=== PATIENT | female | born 1935 | race Caucasian/White ===

== ENCOUNTER 2016-10-18 16:58 | Inpatient (IN) | payer MEDICARE, OTHER ==
--- NOTE | 2016-10-18 18:21 | EDM.PDOC ---
ED HPI GENERAL MEDICAL PROBLEM - General Chief Complaint: Respiratory Problem Stated Complaint: SOB,CHEST PRESSURE Time Seen by Provider: 10/18/16 17:35 Source of Information: Reports: Patient, Family History Limitations: Reports: No Limitations - History of Present Illness INITIAL COMMENTS - FREE TEXT/NARRATIVE: pt has had increased sob. She had a very difficult nite last nitre. She has noted some increased swelling in her ankles. Onset: Gradual Duration: Day(s):, Getting Worse Location: Reports: Chest Associated Symptoms: Reports: Shortness of Breath, Weakness - Related Data Allergies Allergy/AdvReac Type Severity Reaction Status Date / Time codeine Allergy Nausea Verified 10/18/16 18:05 morphine AdvReac Nausea Verified 10/18/16 18:05 Home Meds: Home Meds Aspirin 81 mg PO DAILY 10/18/16 [History] Calcium Acetate 3 tab PO TID 10/18/16 [History] Cholecalciferol (Vitamin D3) [Vitamin D3] 1,000 units PO DAILY 10/18/16 [History ] Citric Acid/Potassium Citrate [Polycitra-K] 30 ml PO DAILY 10/18/16 [History] Ferrous Sulfate 325 mg PO DAILY 10/18/16 [History] Levothyroxine Sodium [Synthroid] 112 mcg PO ACBREAKFAST 10/18/16 [History] Multivitamin [Multivitamins] 1 tab PO DAILY 10/18/16 [History] Nabumetone [Relafen] 1 tab PO BID 10/18/16 [History] Polyethylene Glycol/Polyvinyl [Hypotears Eye Drops] 1 drop EYEBOTH DAILY [History] Pramipexole Di-HCl [Mirapex] 2 tab PO BEDTIME 10/18/16 [History] Simvastatin [Zocor] 20 mg PO BEDTIME 10/18/16 [History] Timolol [Betimol 0.5% Ophth Soln] 1 drop EYEBOTH DAILY 10/18/16 [History] Tolterodine [Detrol] 2 mg PO DAILY 10/18/16 [History] glyBURIDE/Metformin HCl [Glucovance 2.5-500 MG] 1 tab PO BID 10/18/16 [History] traMADol [Ultram] 100 mg PO TID 10/18/16 [History] Furosemide 40 mg PO DAILY #30 tablet 10/22/16 [Rx] Lisinopril [Prinivil] 10 mg PO BEDTIME #30 tablet 10/22/16 [Rx] Pantoprazole [ProTONIX] 40 mg PO DAILY #30 tab.cr 10/22/16 [Rx] Past Medical History HEENT History: Reports: Cataract, Impaired Vision Cardiovascular History: Reports: Hypertension Genitourinary History: Reports: Renal Disease Musculoskeletal History: Reports: Arthritis Endocrine/Metabolic History: Reports: Hypothyroidism, IDDM - Past Surgical History HEENT Surgical History: Reports: Cataract Surgery GI Surgical History: Reports: Appendectomy, Bariatric Procedure, Cholecystectomy Female Surgical History: Reports: Kidney stone extraction Musculoskeletal Surgical History: Reports: Knee Replacement Social & Family History - Tobacco Use Smoking Status *Q: Former Smoker Used Tobacco, but Quit: Yes Month Tobacco Last Used: 200 - Caffeine Use Caffeine Use: Reports: Coffee - Recreational Drug Use Recreational Drug Use: No ED ROS GENERAL - Review of Systems Review Of Systems: See Below Constitutional: Reports: Weakness HEENT: Reports: No Symptoms Respiratory: Reports: Shortness of Breath, Cough Cardiovascular: Reports: No Symptoms Endocrine: Reports: No Symptoms GI/Abdominal: Reports: No Symptoms : Reports: No Symptoms Musculoskeletal: Reports: No Symptoms Skin: Reports: No Symptoms Neurological: Reports: No Symptoms Psychiatric: Reports: No Symptoms ED EXAM, GENERAL - Physical Exam Exam: See Below Free Text/Narrative:: pt has had a increasing problems with sob. She was unable to rest last nite because of the sob. Exam Limited By: No Limitations General Appearance: Alert, Anxious, Moderate Distress Ears: Normal TMs Nose: Normal Inspection Throat/Mouth: Normal Inspection Head: Atraumatic Neck: Normal Inspection Respiratory/Chest: Decreased Breath Sounds, Rales Cardiovascular: Regular Rate, Rhythm GI/Abdominal: Soft, Non-Tender Rectal (Female) Exam: Other ( no masses stool was reyes in color) Back Exam: Normal Inspection Extremities: Pedal Edema, Other (pt has leg swelling. ) Neurological: Alert, Oriented, Normal Cognition Psychiatric: Normal Affect Course - Vital Signs Last Recorded V/S: Last Vital Signs Temp 36.7 C 10/22/16 11:02 Pulse 67 10/22/16 11:02 Resp 20 10/22/16 11:02 BP 105/52 L 10/22/16 11:02 Pulse Ox 96 10/22/16 11:02 - Orders/Labs/Meds Labs: Laboratory Tests 10/18/16 10/18/16 10/18/16 Range/Units 17:36 17:36 18:06 WBC 10.0 (4.5-11.0) K/uL RBC 3.66 (3.30-5.50) M/uL Hgb 7.6 L (12.0-15.0) g/dL Hct 28.1 L (36.0-48.0) % MCV 77 L (80-98) fL MCH 21 L (27-31) pg MCHC 27 L (32-36) % Plt Count 297 (150-400) K/uL Neut % (Auto) 81 H (36-66) % Lymph % (Auto) 10 L (24-44) % [place] % (Auto) 6 (2-6) % Eos % (Auto) 2 (2-4) % Baso % (Auto) 0 (0-1) % Sodium 145 (140-148) mmol/L Potassium 4.3 (3.6-5.2) mmol/L Chloride 107 (100-108) mmol/L Carbon Dioxide 33 H (21-32) mmol/L Anion Gap 9.3 (5.0-14.0) mmol/L BUN 26 H (7-18) mg/dL Creatinine 1.1 H (0.6-1.0) mg/dL Est Cr Clr Drug Dosing 32.80 mL/min Estimated GFR (MDRD) 48 L (>60) Glucose 177 H (74-106) mg/dL Calcium 8.5 (8.5-10.1) mg/dL Iron 20 L (50-170) ug/dL TIBC 442 (250-450) ug/dl % Saturation 5 L (20-55) % Total Bilirubin 0.3 (0.2-1.0) mg/dL AST 16 (15-37) U/L ALT 24 (12-78) U/L Alkaline Phosphatase 105 (46-116) U/L Creatine Kinase 57 (26-192) U/L C-Reactive Protein (0.0-0.3) mg/dL NT-Pro-B Natriuret Pep 670 H (5-450) pg/mL Total Protein 7.0 (6.4-8.2) g/dL Albumin 2.9 L (3.4-5.0) g/dL Globulin 4.1 H (2.3-3.5) g/dL Albumin/Globulin Ratio 0.7 L (1.2-2.2) Urine Color Urine Appearance Urine pH (4.5-8.0) Ur Specific [place] (1.008-1.030) Urine Protein (NEGATIVE) mg/dL Urine Glucose (UA) (NEGATIVE) mg/dL Urine Ketones (NEGATIVE) mg/dL Urine Occult Blood (NEGATIVE) Urine Nitrite (NEGATIVE) Urine Bilirubin (NEGATIVE) Urine Urobilinogen (NORMAL) mg/dL Ur Leukocyte Esterase (NEGATIVE) Urine RBC (0-5) Urine WBC (0-5) Ur Epithelial Cells Amorphous Sediment Urine Bacteria Urine Mucus Blood Type Gel Antibody Screen Crossmatch 10/18/16 10/18/16 10/18/16 Range/Units 18:08 18:27 20:07 WBC (4.5-11.0) K/uL RBC (3.30-5.50) M/uL Hgb (12.0-15.0) g/dL Hct (36.0-48.0) % MCV (80-98) fL MCH (27-31) pg MCHC (32-36) % Plt Count (150-400) K/uL Neut % (Auto) (36-66) % Lymph % (Auto) (24-44) % [place] % (Auto) (2-6) % Eos % (Auto) (2-4) % Baso % (Auto) (0-1) % Sodium (140-148) mmol/L Potassium (3.6-5.2) mmol/L Chloride (100-108) mmol/L Carbon Dioxide (21-32) mmol/L Anion Gap (5.0-14.0) mmol/L BUN (7-18) mg/dL Creatinine (0.6-1.0) mg/dL Est Cr Clr Drug Dosing mL/min Estimated GFR (MDRD) (>60) Glucose (74-106) mg/dL Calcium (8.5-10.1) mg/dL Iron (50-170) ug/dL TIBC (250-450) ug/dl % Saturation (20-55) % Total Bilirubin (0.2-1.0) mg/dL AST (15-37) U/L ALT (12-78) U/L Alkaline Phosphatase (46-116) U/L Creatine Kinase (26-192) U/L C-Reactive Protein 0.12 (0.0-0.3) mg/dL NT-Pro-B Natriuret Pep (5-450) pg/mL Total Protein (6.4-8.2) g/dL Albumin (3.4-5.0) g/dL Globulin (2.3-3.5) g/dL Albumin/Globulin Ratio (1.2-2.2) Urine Color Yellow Urine Appearance Slightly cloudy Urine pH 7.0 (4.5-8.0) Ur Specific [place] 1.010 (1.008-1.030) Urine Protein Negative (NEGATIVE) mg/dL Urine Glucose (UA) Normal (NEGATIVE) mg/dL Urine Ketones Negative (NEGATIVE) mg/dL Urine Occult Blood Negative (NEGATIVE) Urine Nitrite Negative (NEGATIVE) Urine Bilirubin Negative (NEGATIVE) Urine Urobilinogen Normal (NORMAL) mg/dL Ur Leukocyte Esterase Moderate (NEGATIVE) Urine RBC 5-10 H (0-5) Urine WBC 10-20 H (0-5) Ur Epithelial Cells Moderate Amorphous Sediment Not seen Urine Bacteria Moderate Urine Mucus Not seen Blood Type B POSITIVE Gel Antibody Screen Negative Crossmatch See Detail Meds: Medications Discontinued Medications Generic Name Dose Route Start Last Admin Trade Name Freq PRN Reason Stop Dose Admin Acetaminophen 650 mg 10/18/16 21:03 Tylenol PO Q4H PRN Pain (Mild 1-3)/fever Albuterol 2.5 mg 10/18/16 21:03 Proventil Neb Soln NEB Q4H PRN Shortness Of Breath/wheezing Artificial Tears 0 ml 10/19/16 09:00 10/22/16 08:28 Natural Balance Tears EYEBOTH 1 drop DAILY [facility] Administration Aspirin 81 mg 10/19/16 09:00 10/22/16 10:37 Aspirin PO 81 mg DAILY [facility] Administration Bisacodyl 10 mg 10/20/16 11:00 10/20/16 11:29 Dulcolax PO 10/20/16 11:01 10 mg ONETIME ONE Administration Bisacodyl 10 mg 10/20/16 20:00 10/20/16 19:47 Dulcolax PO 10/20/16 20:01 10 mg ONETIME ONE Administration Carvedilol 6.25 mg 10/20/16 21:00 10/21/16 14:24 Coreg PO Not Given BID [facility] Dextrose 15 gm 10/18/16 21:03 Glutose 15 PO ONETIME PRN Hypoglycemia Dextrose/Water 50 ml 10/18/16 21:03 Dextrose 50% In Water IV ONETIME PRN Hypoglycemia Docusate Sodium 100 mg 10/18/16 21:03 Colace PO BID PRN Constipation Enoxaparin Sodium 40 mg 10/18/16 21:03 10/18/16 22:38 Lovenox SUBCUT 40 mg DAILY [facility] Administration Enoxaparin Sodium 30 mg 10/19/16 20:00 10/19/16 20:14 Lovenox SUBCUT 30 mg Q24H [facility] Administration Fentanyl Confirm 10/21/16 11:57 Sublimaze Administered 10/21/16 11:58 Dose 100 mcg .ROUTE .STK-MED ONE Furosemide 60 mg 10/18/16 18:30 10/18/16 19:17 Lasix IVPUSH 10/18/16 18:31 60 mg ONETIME ONE Administration Furosemide 40 mg 10/19/16 08:00 10/19/16 08:41 Lasix IVPUSH 10/19/16 08:01 40 mg ONETIME ONE Administration Furosemide 40 mg 10/19/16 19:30 10/20/16 08:10 Lasix IVPUSH 40 mg Q12H [facility] Administration Glyburide 2.5 mg 10/19/16 09:00 10/22/16 08:28 Micronase PO 2.5 mg BID [facility] Administration Sodium Chloride 1,000 mls @ 100 mls/hr 10/18/16 18:30 10/18/16 19:17 Normal Saline IV 100 mls/hr ASDIRECTED [facility] Administration Ferric Sodium Gluconate 120 mls @ 120 mls/hr 10/18/16 22:00 10/19/16 00:31 Complex 250 mg/ Sodium IV 10/19/16 22:59 120 mls/hr Chloride Q24H [facility] Administration Ferric Sodium Gluconate 120 mls @ 60 mls/hr 10/19/16 22:00 10/19/16 21:46 Complex 250 mg/ Sodium IV 10/19/16 23:59 60 mls/hr Chloride Q24H [facility] Administration Potassium Chloride 20 meq/ 112 mls @ 56 mls/hr 10/21/16 09:00 10/21/16 14:20 Lidocaine HCl 2 ml/ Sodium IV 10/21/16 14:59 56 mls/hr Chloride Q2H [facility] Administration Sodium Chloride 1,000 mls @ 50 mls/hr 10/21/16 09:30 10/21/16 09:43 Normal Saline IV 50 mls/hr ASDIRECTED [facility] Administration Indapamide 2.5 mg 10/19/16 09:00 10/21/16 15:09 Indapamide PO Not Given DAILY [facility] Insulin Aspart 0 unit 10/19/16 07:00 10/22/16 11:54 Novolog SUBCUT Not Given QIDACANDBED [facility] Protocol Insulin Aspart 0 unit 10/18/16 21:10 Novolog SUBCUT 10/19/16 05:00 ONETIME PRN Blood Glucose Protocol Levothyroxine Sodium 112 mcg 10/19/16 07:30 10/22/16 10:37 Levothyroxine PO 112 mcg ACBREAKFAST [facility] Administration Lisinopril 40 mg 10/19/16 09:00 10/21/16 14:25 Prinivil PO Not Given DAILY [facility] Lisinopril 10 mg 10/22/16 09:00 10/22/16 08:26 Prinivil PO 10 mg DAILY [facility] Administration Magnesium Hydroxide 30 ml 10/18/16 21:03 Milk Of Magnesia PO Q12H PRN Constipation Metformin HCl 500 mg 10/19/16 09:00 10/18/16 22:41 Glucophage PO 500 mg BID [facility] Administration Metformin HCl Confirm 10/18/16 22:34 10/18/16 22:51 Glucophage Administered 10/18/16 22:35 Not Given Dose 500 mg .ROUTE .STK-MED ONE Metformin HCl 500 mg 10/19/16 08:00 10/22/16 08:30 Glucophage PO 500 mg BIDMEALS [facility] Administration Metoclopramide HCl 10 mg 10/21/16 06:48 10/21/16 07:11 Reglan IV 10/21/16 06:49 10 mg ONETIME ONE Administration Metoprolol Tartrate 25 mg 10/19/16 16:00 10/20/16 11:32 Lopressor PO Not Given Q6H [facility] Midazolam HCl Confirm 10/21/16 11:57 Versed 1 Mg/Ml Administered 10/21/16 11:58 Dose 2 mg .ROUTE .STK-MED ONE Non-Formulary Medication 1 tab 10/18/16 21:03 10/18/16 22:43 Verapamil Hcl [Verapamil Er] PO Not Given BID [facility] Ondansetron HCl 4 mg 10/18/16 21:03 10/21/16 06:38 Zofran IV 4 mg Q4H PRN Administration Nausea/Vomiting Oxycodone HCl 5 mg 10/18/16 21:03 Oxycodone PO Q4H PRN Pain (moderate 4-6) Pantoprazole Sodium 40 mg 10/18/16 21:30 10/19/16 08:41 Protonix Iv IVPUSH 40 mg Q12H [facility] Administration Pantoprazole Sodium 40 mg 10/19/16 16:30 10/22/16 08:24 Protonix PO 40 mg BIDAC [facility] Administration Polyethylene Glycol 17 gm 10/18/16 21:03 Miralax PO DAILY PRN Constipation Polyethylene Glycol 238 gm 10/20/16 17:00 10/20/16 17:35 Miralax PO 10/20/16 17:01 238 gm ONETIME ONE Administration Pramipexole Dihydrochloride 0.5 mg 10/18/16 21:30 Mirapex PO BEDTIME [facility] Pramipexole Dihydrochloride 0.25 mg 10/18/16 21:30 10/21/16 20:51 Mirapex PO 0.25 mg BEDTIME [facility] Administration Propofol Confirm 10/21/16 11:56 Diprivan 20 Ml Administered 10/21/16 11:57 Dose 200 mg .ROUTE .STK-MED ONE Simvastatin 20 mg 10/18/16 21:03 10/21/16 20:52 Zocor PO 20 mg BEDTIME [facility] Administration Sodium Chloride 10 ml 10/18/16 21:03 Saline Flush FLUSH ASDIRECTED PRN Keep Vein Open Timolol Maleate 0 ml 10/19/16 09:00 10/22/16 08:29 Betimol 0.5% Ophth Soln EYEBOTH 1 drop DAILY [facility] Administration Tolterodine Tartrate 2 mg 10/19/16 09:00 10/22/16 10:37 Detrol PO 2 mg DAILY [facility] Administration Tramadol HCl 100 mg 10/18/16 21:03 10/18/16 22:42 Ultram PO Not Given TID [facility] Tramadol HCl 100 mg 10/18/16 22:22 10/20/16 23:18 Ultram PO 100 mg TID PRN Administration Pain - Re-Assessments/Exams Free Text/Narrative Re-Assessment/Exam: 10/18/16 18:34 chest xray reveals effusions. There is a possible mass in the rt chest. 10/18/16 18:49 pt has a creatnine of 1.1. Her gfr is low. Departure - Departure Time of Disposition: 18:52 Disposition: Admitted As Inpatient 68 Condition: Fair Clinical Impression: Fluid overload, Anemia, Iron deficiency - Discharge Information
[2016-10-18] MEDS ORDERED: Furosemide 40 MG/4 ML VIAL IVPUSH ONE (18:30)
[2016-10-18] MEDS ORDERED: Sodium Chloride 0.9% 1,000 ML IV SCH (18:30)
[2016-10-18] MEDS ORDERED: traMADol 50 MG Tab PO SCH (21:03)
[2016-10-18] MEDS ORDERED: Docusate Sodium 100 MG Cap PO PRN (21:03)
[2016-10-18] MEDS ORDERED: Polyethylene Glycol 3350 Powder 17 GM Packet PO PRN (21:03)
[2016-10-18] MEDS ORDERED: 50% Dextrose in Water 50 ML Syringe IV PRN (21:03)
[2016-10-18] MEDS ORDERED: Albuterol 0.083% 2.5 MG/3 ML Neb Soln NEB PRN (21:03)
[2016-10-18] MEDS ORDERED: Glucose Gel 15 GM in 37.5 GM Tube PO PRN (21:03)
[2016-10-18] MEDS ORDERED: Magnesium Hydroxide 400 MG/5 ML Susp 30 ML Cup PO PRN (21:03)
[2016-10-18] MEDS ORDERED: VERAPAMIL HCL PO SCH (21:03)
[2016-10-18] MEDS ORDERED: oxyCODONE 5 MG Tab PO PRN (21:03)
[2016-10-18] MEDS ORDERED: Enoxaparin 40 MG/0.4 ML Syringe SUBCUT SCH (21:03)
[2016-10-18] MEDS ORDERED: Sodium Chloride 0.9% 10 ML Syringe FLUSH PRN (21:03)
[2016-10-18] MEDS ORDERED: Acetaminophen 325 MG Tab PO PRN (21:03)
[2016-10-18] MEDS ORDERED: Insulin Aspart 100 Units/ML 3 ML Pen SUBCUT PRN (21:10)
[2016-10-18] MEDS ORDERED: Pramipexole 0.5 MG Tab PO SCH (21:30)
[2016-10-18] MEDS ORDERED: Sodium Ferric Gluconate Cmplex 250 MG in Sodium Chloride 0.9% 100 ML IV SCH (22:00)
--- NOTE | 2016-10-18 22:04 | PCM.HP ---
H&P History of Present Illness - General Date of Service: 10/18/16 Admit Problem/Dx: Admission Diagnosis/Problem Admission Diagnosis/Problem Hypoxia Source of Information: Patient, Provider, RN Notes Reviewed History Limitations: Reports: No Limitations - History of Present Illness Initial Comments - Free Text/Narative: This patient is a 81-year-old woman who is admitted through the emergency department with shortness of breath, hypoxia, and weakness secondary to pulmonary edema with probable congestive heart failure. She also is found to have significant anemia on evaluation in the emergency department which is likely exacerbating current symptoms of weakness as well as shortness of breath. She denies any previous history of significant cardiac disease specifically has not had known coronary artery disease congestive heart failure or significant valvular disease. She denies any history of respiratory disease, but does have a previous history of anemia with GI bleed approximately 8 years ago. Symptoms have been present over the past several months but became significantly worse this past week. She's had increase in peripheral edema and also experience symptoms of orthopnea and PND. - Related Data Allergies/Adverse Reactions: Allergies Allergy/AdvReac Type Severity Reaction Status Date / Time codeine Allergy Nausea Verified 10/18/16 18:05 morphine AdvReac Nausea Verified 10/18/16 18:05 Home Medications: Home Meds Aspirin 81 mg PO DAILY 10/18/16 [History] Calcium Acetate 667 mg PO TID 10/18/16 [History] Cholecalciferol (Vitamin D3) [Vitamin D3] 1,000 units PO DAILY 10/18/16 [History ] Citric Acid/Potassium Citrate [Polycitra-K] 30 ml PO DAILY 10/18/16 [History] Ferrous Sulfate 325 mg PO DAILY 10/18/16 [History] Furosemide 20 mg PO DAILY 10/18/16 [History] Indapamide 2.5 mg PO DAILY 10/18/16 [History] Levothyroxine Sodium [Synthroid] 112 mcg PO ACBREAKFAST 10/18/16 [History] Lisinopril 40 mg PO DAILY 10/18/16 [History] Multivitamin [Multivitamins] 1 tab PO DAILY 10/18/16 [History] Nabumetone [Relafen] 1 tab PO BID 10/18/16 [History] Polyethylene Glycol/Polyvinyl [Hypotears Eye Drops] 1 drop EYEBOTH DAILY [History] Pramipexole Di-HCl [Mirapex] 2 tab PO BEDTIME 10/18/16 [History] Simvastatin [Zocor] 20 mg PO BEDTIME 10/18/16 [History] Timolol [Betimol 0.5% Ophth Soln] 1 drop EYEBOTH DAILY 10/18/16 [History] Tolterodine [Detrol] 2 mg PO DAILY 10/18/16 [History] Verapamil HCl [Verapamil ER] 1 tab PO BID 10/18/16 [History] glyBURIDE/Metformin HCl [Glucovance 2.5-500 MG] 1 tab PO BID 10/18/16 [History] traMADol [Ultram] 100 mg PO TID 10/18/16 [History] Past Medical History HEENT History: Reports: Cataract, Impaired Vision Cardiovascular History: Reports: Hypertension Genitourinary History: Reports: Renal Disease Musculoskeletal History: Reports: Arthritis Endocrine/Metabolic History: Reports: Hypothyroidism, IDDM - Past Surgical History HEENT Surgical History: Reports: Cataract Surgery GI Surgical History: Reports: Appendectomy, Bariatric Procedure, Cholecystectomy Female Surgical History: Reports: Kidney stone extraction Musculoskeletal Surgical History: Reports: Knee Replacement Social & Family History - Tobacco Use Smoking Status *Q: Former Smoker Used Tobacco, but Quit: Yes Month Tobacco Last Used: 200 - Caffeine Use Caffeine Use: Reports: Coffee - Recreational Drug Use Recreational Drug Use: No H&P Review of Systems - Review of Systems: Review Of Systems: See Below General: Reports: Weakness, Diaphoresis. Denies: Fever, Chills HEENT: Reports: No Symptoms Pulmonary: Reports: Shortness of Breath. Denies: Wheezing, Pleuritic Chest Pain , Cough, Sputum, Hemoptysis Cardiovascular: Reports: Dyspnea on Exertion, Orthopnea, PND, Edema, Lightheadedness. Denies: Chest Pain, Palpitations, Syncope Gastrointestinal: Reports: No Symptoms Genitourinary: Reports: No Symptoms Musculoskeletal: Reports: Back Pain, Joint Pain Skin: Reports: No Symptoms Psychiatric: Reports: No Symptoms Neurological: Reports: No Symptoms Hematologic/Lymphatic: Reports: No Symptoms Immunologic: Reports: No Symptoms Exam - Exam Exam: See Below - Vital Signs Vital Signs: Last Vital Signs Temp 98.3 F 10/18/16 21:03 Pulse 63 10/18/16 21:05 Resp 19 10/18/16 21:05 BP 121/44 L 10/18/16 21:05 Pulse Ox 97 10/18/16 21:05 Weight: 243 lb 6.245 oz - Exam Quality Assessment: Supplemental Oxygen, DVT Prophylaxis General: Alert, Oriented, Cooperative, Mild Distress HEENT: Conjunctiva Clear, Hearing Intact, Mucosa Moist & [place], Normal Nasal Septum, Posterior Pharynx Clear, Pupils Equal Neck: Supple, Trachea Midline, +2 Carotid Pulse wo Bruit Lungs: Normal Respiratory Effort, Rales. No: Decreased Breath Sounds, Crackles , Rhonchi, Wheezing Cardiovascular: Regular Rate, Regular Rhythm, Normal S1, Normal S2. No: Tachycardia, Systolic Murmur, Diastolic Murmur, Gallop/S3, Gallop/S4 GI/Abdominal Exam: Normal Bowel Sounds, Soft, Non-Tender, No Distention Back Exam: Normal Inspection, Full Range of Motion, Vertebral Tenderness Extremities: Normal Range of Motion, Non-Tender, Pedal Edema Skin: Warm, Dry, Intact Neurological: Cranial Nerves Intact, Strength Equal Bilateral, Normal Speech, Normal Tone, Sensation Intact. No: Focal Deficit Neuro Extensive - Mental Status: Alert, Oriented x3, Normal Mood/Affect, Normal Cognition, Memory Intact - Patient Data Result Diagrams: 10/18/16 17:36 10/18/16 17:36 *Q Meaningful Use (ADM) - VTE *Q VTE Criteria *Q: - VTE Risk Assess *Q Each Risk Factor Represents 1 Point: Swollen Legs, Current Total Score 1 Point Risk Factors: 1 Each Risk Factor Represents 2 Points: Morbid Obesity (BMI Greater than 40) Total Score 2 Point Risk Factors: 2 Each Risk Factor Represents 3 Points: Age 75 Years or Greater Total Score 3 Point Risk Factors: 3 Each Risk Factor Represents 5 Points: None Total Score 5 Point Risk Factors: 0 Venous Thromboembolism Risk Factor Score *Q: 6 - Stroke *Q Stroke Criteria *Q: - AMI *Q AMI Criteria *Q: Problem List Initiated/Reviewed/Updated: Yes Orders Last 24hrs: Active Orders 24 hr Category Date Time Status Patient Status [ADT] Routine ADT 10/18/16 21:03 Active Ambulate [RC] QID Care 10/18/16 21:03 Active Blood Glucose Check, Bedside [RC] QIDACANDBED Care 10/18/16 21:03 Active Cardiac Education [RC] Click to Edit Care 10/18/16 21:03 Active Cardiac Monitoring [RC] .As Directed Care 10/18/16 21:03 Active Communication Order [RC] ASDIRECTED Care 10/18/16 21:03 Active Diabetes Education [RC] Click to Edit Care 10/18/16 21:03 Active Intake and Output [RC] QSHIFT Care 10/18/16 21:03 Active Notify Provider Vital Signs [RC] ASDIRECTED Care 10/18/16 21:03 Active Notify Provider [RC] PRN Care 10/18/16 21:03 Active Oxygen Therapy [RC] PRN Care 10/18/16 21:03 Active RT Aerosol Therapy [RC] ASDIRECTED Care 10/18/16 21:03 Active Up With Assistance [RC] ASDIRECTED Care 10/18/16 21:03 Active Up to Chair [RC] QID Care 10/18/16 21:03 Active VTE/DVT Education [RC] Per Unit Routine Care 10/18/16 21:03 Active Vital Signs [RC] Q4H Care 10/18/16 21:03 Active 2 Gram Sodium Diet [DIET] Diet 10/18/16 Breakfast Active Consistent Carbohydrate Diet [DIET] Diet 10/18/16 Breakfast Active Echo Comp wo Cont [US] Urgent Exams 10/20/16 08:00 Ordered BASIC METABOLIC PANEL,BMP [CHEM] AM Lab 10/19/16 05:11 Ordered CBC WITH AUTO DIFF [HEME] AM Lab 10/19/16 05:11 Ordered GLUCOSE POC LAB TO COLLECT [POC] QIDACANDBED Lab 10/19/16 07:30 Ordered GLUCOSE POC LAB TO COLLECT [POC] QIDACANDBED Lab 10/19/16 11:30 Ordered GLUCOSE POC LAB TO COLLECT [POC] QIDACANDBED Lab 10/19/16 16:30 Ordered GLUCOSE POC LAB TO COLLECT [POC] QIDACANDBED Lab 10/19/16 21:00 Ordered GLUCOSE POC LAB TO COLLECT [POC] QIDACANDBED Lab 10/20/16 07:30 Ordered GLUCOSE POC LAB TO COLLECT [POC] QIDACANDBED Lab 10/20/16 11:30 Ordered GLUCOSE POC LAB TO COLLECT [POC] QIDACANDBED Lab 10/20/16 16:30 Ordered GLUCOSE POC LAB TO COLLECT [POC] QIDACANDBED Lab 10/20/16 21:00 Ordered GLUCOSE POC LAB TO COLLECT [POC] QIDACANDBED Lab 10/21/16 07:30 Ordered GLUCOSE POC LAB TO COLLECT [POC] QIDACANDBED Lab 10/21/16 11:30 Ordered GLUCOSE POC LAB TO COLLECT [POC] QIDACANDBED Lab 10/21/16 16:30 Ordered GLUCOSE POC LAB TO COLLECT [POC] QIDACANDBED Lab 10/21/16 21:00 Ordered GLUCOSE POC LAB TO COLLECT [POC] QIDACANDBED Lab 10/22/16 07:30 Ordered GLUCOSE POC LAB TO COLLECT [POC] QIDACANDBED Lab 10/22/16 11:30 Ordered GLUCOSE POC LAB TO COLLECT [POC] QIDACANDBED Lab 10/22/16 16:30 Ordered GLUCOSE POC LAB TO COLLECT [POC] QIDACANDBED Lab 10/22/16 21:00 Ordered GLUCOSE POC LAB TO COLLECT [POC] QIDACANDBED Lab 10/23/16 07:30 Ordered GLUCOSE POC LAB TO COLLECT [POC] QIDACANDBED Lab 10/23/16 11:30 Ordered GLUCOSE POC LAB TO COLLECT [POC] QIDACANDBED Lab 10/23/16 16:30 Ordered GLUCOSE POC LAB TO COLLECT [POC] QIDACANDBED Lab 10/23/16 21:00 Ordered GLUCOSE POC LAB TO COLLECT [POC] QIDACANDBED Lab 10/24/16 07:30 Ordered GLUCOSE POC LAB TO COLLECT [POC] QIDACANDBED Lab 10/24/16 11:30 Ordered GLUCOSE POC LAB TO COLLECT [POC] QIDACANDBED Lab 10/24/16 16:30 Ordered GLUCOSE POC LAB TO COLLECT [POC] QIDACANDBED Lab 10/24/16 21:00 Ordered GLUCOSE POC LAB TO COLLECT [POC] QIDACANDBED Lab 10/25/16 07:30 Ordered GLUCOSE POC LAB TO COLLECT [POC] QIDACANDBED Lab 10/25/16 11:30 Ordered GLUCOSE POC LAB TO COLLECT [POC] QIDACANDBED Lab 10/25/16 16:30 Ordered GLUCOSE POC LAB TO COLLECT [POC] QIDACANDBED Lab 10/25/16 21:00 Ordered GLUCOSE POC LAB TO COLLECT [POC] QIDACANDBED Lab 10/26/16 07:30 Ordered GLUCOSE POC LAB TO COLLECT [POC] QIDACANDBED Lab 10/26/16 11:30 Ordered GLUCOSE POC LAB TO COLLECT [POC] QIDACANDBED Lab 10/26/16 16:30 Ordered GLUCOSE POC LAB TO COLLECT [POC] QIDACANDBED Lab 10/26/16 21:00 Ordered GLUCOSE POC LAB TO COLLECT [POC] QIDACANDBED Lab 10/27/16 07:30 Ordered GLUCOSE POC LAB TO COLLECT [POC] QIDACANDBED Lab 10/27/16 11:30 Ordered GLUCOSE POC LAB TO COLLECT [POC] QIDACANDBED Lab 10/27/16 16:30 Ordered GLUCOSE POC LAB TO COLLECT [POC] QIDACANDBED Lab 10/27/16 21:00 Ordered GLUCOSE POC LAB TO COLLECT [POC] QIDACANDBED Lab 10/28/16 07:30 Ordered GLUCOSE POC LAB TO COLLECT [POC] QIDACANDBED Lab 10/28/16 11:30 Ordered GLUCOSE POC LAB TO COLLECT [POC] QIDACANDBED Lab 10/28/16 16:30 Ordered GLUCOSE POC LAB TO COLLECT [POC] QIDACANDBED Lab 10/28/16 21:00 Ordered GLUCOSE POC LAB TO COLLECT [POC] QIDACANDBED Lab 10/29/16 07:30 Ordered GLUCOSE POC LAB TO COLLECT [POC] QIDACANDBED Lab 10/29/16 11:30 Ordered GLUCOSE POC LAB TO COLLECT [POC] QIDACANDBED Lab 10/29/16 16:30 Ordered GLUCOSE POC LAB TO COLLECT [POC] QIDACANDBED Lab 10/29/16 21:00 Ordered GLUCOSE POC LAB TO COLLECT [POC] Stat Lab 10/18/16 21:47 Ordered MAGNESIUM [CHEM] AM Lab 10/19/16 05:11 Ordered PRO B-TYPE NATRIUR PEPT,BNPPRO [CHEM] Routine Lab 10/19/16 05:00 Ordered TSH ULTRASENSITIVE [CHEM] Timed Lab 10/19/16 05:00 Ordered Acetaminophen [Tylenol] Med 10/18/16 21:03 Active 650 mg PO Q4H PRN Albuterol [Proventil Neb Soln] Med 10/18/16 21:03 Active 2.5 mg NEB Q4H PRN Dextrose 50% in Water Med 10/18/16 21:03 Active 50 ml IV ONETIME PRN Dextrose [Glutose 15] Med 10/18/16 21:03 Active 15 gm PO ONETIME PRN Docusate Sodium [Colace] Med 10/18/16 21:03 Active 100 mg PO BID PRN Enoxaparin [Lovenox] Med 10/18/16 21:03 Active 40 mg SUBCUT DAILY Furosemide [Lasix] Med 10/19/16 08:00 Once 40 mg IVPUSH ONETIME ONE Insulin Aspart [NovoLOG] Med 10/18/16 21:10 Active 0 unit SUBCUT ONETIME PRN Insulin Aspart [NovoLOG] Med 10/19/16 07:00 Active See Protocol SUBCUT QIDACANDBED Magnesium Hydroxide [Milk of Magnesia] Med 10/18/16 21:03 Active 30 ml PO Q12H PRN Ondansetron [Zofran] Med 10/18/16 21:03 Active 4 mg IV Q4H PRN Pantoprazole [ProTONIX IV] Med 10/18/16 21:30 Active 40 mg IVPUSH Q12H Polyethylene Glycol 3350 [MiraLAX] Med 10/18/16 21:03 Active 17 gm PO DAILY PRN Pramipexole [Mirapex] Med 10/18/16 21:30 Active 0.25 mg PO BEDTIME Sodium Chloride 0.9% [Saline Flush] Med 10/18/16 21:03 Active 10 ml FLUSH ASDIRECTED PRN Sodium Ferric Gluconate Cmplex [Ferrlecit IV] 250 mg Med 10/18/16 22:00 Active Sodium Chloride 0.9% [Normal Saline] 100 ml IV Q24H metFORMIN [Glucophage] Med 10/19/16 09:00 Active 500 mg PO BID oxyCODONE Med 10/18/16 21:03 Active 5 mg PO Q4H PRN Saline Lock Insert [OM.PC] Routine Oth 10/18/16 21:03 Ordered Transfuse Red Blood Cells [COMM] Urgent Oth 10/18/16 21:03 Ordered Resuscitation Status Routine Resus Stat 10/18/16 20:38 Ordered Medication Orders Acetaminophen (Tylenol) 650 mg PO Q4H PRN PRN Reason: Pain (Mild 1-3)/fever Albuterol (Proventil Neb Soln) 2.5 mg NEB Q4H PRN PRN Reason: Shortness Of Breath/wheezing Artificial Tears (Natural Balance Tears) 0 ml EYEBOTH DAILY [facility] Aspirin (Aspirin) 81 mg PO DAILY [facility] Dextrose (Glutose 15) 15 gm PO ONETIME PRN PRN Reason: Hypoglycemia Dextrose/Water (Dextrose 50% In Water) 50 ml IV ONETIME PRN PRN Reason: Hypoglycemia Docusate Sodium (Colace) 100 mg PO BID PRN PRN Reason: Constipation Enoxaparin Sodium (Lovenox) 40 mg SUBCUT DAILY [facility] Furosemide (Lasix) 40 mg IVPUSH ONETIME ONE Stop: 10/19/16 08:01 Glyburide (Micronase) 2.5 mg PO BID [facility] Ferric Sodium Gluconate Complex 250 mg/ Sodium Chloride 120 mls @ 120 mls/hr IV Q24H [facility] Stop: 10/19/16 22:59 Indapamide (Indapamide) 2.5 mg PO DAILY [facility] Insulin Aspart (Novolog) 0 unit SUBCUT QIDACANDBED [facility] PRN Reason: Protocol Insulin Aspart (Novolog) 0 unit SUBCUT ONETIME PRN; Protocol PRN Reason: Blood Glucose Stop: 10/19/16 05:00 Levothyroxine Sodium (Levothyroxine) 112 mcg PO ACBREAKFAST [facility] Lisinopril (Prinivil) 40 mg PO DAILY [facility] Magnesium Hydroxide (Milk Of Magnesia) 30 ml PO Q12H PRN PRN Reason: Constipation Metformin HCl (Glucophage) 500 mg PO BID [facility] Ondansetron HCl (Zofran) 4 mg IV Q4H PRN PRN Reason: Nausea/Vomiting Oxycodone HCl (Oxycodone) 5 mg PO Q4H PRN PRN Reason: Pain (moderate 4-6) Pantoprazole Sodium (Protonix Iv) 40 mg IVPUSH Q12H [facility] Polyethylene Glycol (Miralax) 17 gm PO DAILY PRN PRN Reason: Constipation Pramipexole Dihydrochloride (Mirapex) 0.25 mg PO BEDTIME [facility] Simvastatin (Zocor) 20 mg PO BEDTIME [facility] Sodium Chloride (Saline Flush) 10 ml FLUSH ASDIRECTED PRN PRN Reason: Keep Vein Open Timolol Maleate (Betimol 0.5% Ophth Soln) 0 ml EYEBOTH DAILY [facility] Tolterodine Tartrate (Detrol) 2 mg PO DAILY [facility] Tramadol HCl (Ultram) 100 mg PO TID [facility] Assessment/Plan Comment:: ASSESSMENT AND PLAN HYPOXIA-symptoms have been present over the past several months but significantly worse this week. Symptom complex is consistent with congestive heart failure and associated shortness of breath, PND, orthopnea, and peripheral edema. She denies any preceding history of significant cardiac disease. Current symptoms are likely exacerbated by anemia. -Saline lock IV -IV Lasix given in the ED and will be repeated in a.m. -Continue MATEUS inhibitor therapy -Discontinue verapamil -Consider addition of beta nano to current regimen in a.m. -Echocardiogram to assess left ventricular function and valvular status MICROCYTIC ANEMIA-further labs obtained in the emergency department do show evidence of iron deficiency. No evidence of active GI bleeding at this time -Transfuse one unit of red blood cells -Recheck hemoglobin in a.m. -IV iron replacement -Consider upper and lower endoscopy when she is stable from a cardiac standpoint -Protonix 40 mg IV every 12 hours TYPE 2 DIABETES MELLITUS -4 times a day glucometers -Continue outpatient medical regimen -Low-dose sliding scale NovoLog as needed CHRONIC KIDNEY DISEASE STAGE III -Closely monitor urine output and renal function during hospital stay MAINTENANCE ISSUES -DVT prophylaxis; Lovenox 40 mg subcutaneous daily -GI prophylaxis; Protonix 40 mg twice daily -Borges catheter; not indicated -Nutrition; 2 g sodium consistent carb diet -Nicotine dependence; not required CODE STATUS-FULL CODE ADMISSION STATUS-patient will be admitted to inpatient status, expect at least a 2 night hospital stay for evaluation and management of problems as outlined above. At the time of this admission I do not reasonably expected evaluation and management of this problem will require more than a 96 hour hospital stay. DISPOSITION-anticipate discharge to home after the hospital stay. PRIMARY CARE PROVIDER-Dr. Cesar
[2016-10-18] MEDS ORDERED: metFORMIN 500 MG Tab ONE (22:34)
[2016-10-18] MEDS: Pramipexole 0.5 MG Tab PO SCH (22:40)
[2016-10-18] MEDS: Simvastatin 20 MG Tab PO SCH (22:40)
[2016-10-18] MEDS: Pantoprazole 40 MG Vial IVPUSH SCH (22:41)
[2016-10-18] MEDS: traMADol 50 MG Tab PO PRN (23:22)
[2016-10-19] MEDS: Insulin Aspart 100 Units/ML 3 ML Pen SUBCUT SCH ×4 (07:24→21:11)
[2016-10-19] MEDS ORDERED: Furosemide 40 MG/4 ML VIAL IVPUSH ONE (08:00)
[2016-10-19] MEDS: Levothyroxine 112 MCG Tab PO SCH (08:24)
[2016-10-19] MEDS: Indapamide 2.5 MG Tab PO SCH (08:36)
[2016-10-19] MEDS: Aspirin 81 MG Tab.Chew PO SCH (08:36)
[2016-10-19] MEDS: Tolterodine 2 MG Tab PO SCH (08:37)
[2016-10-19] MEDS: TIMOLOL HEMIHYDRATE EYEBOTH SCH (08:37)
[2016-10-19] MEDS: Lisinopril 20 MG Tab PO SCH (08:40)
[2016-10-19] MEDS: Hypromellose 0.4% Ophth Soln 15 ML Bottle EYEBOTH SCH (08:40)
[2016-10-19] MEDS: Pantoprazole 40 MG Vial IVPUSH SCH (08:41)
[2016-10-19] MEDS ORDERED: TIMOLOL HEMIHYDRATE EYEBOTH SCH (09:00)
[2016-10-19] MEDS ORDERED: metFORMIN 500 MG Tab PO SCH (09:00)
[2016-10-19] MEDS ORDERED: Hypromellose 0.4% Ophth Soln 15 ML Bottle EYEBOTH SCH (09:00)
[2016-10-19] MEDS: metFORMIN 500 MG Tab PO SCH ×2 (09:15→16:26)
--- NOTE | 2016-10-19 09:28 | CR ---
Chest 2V HISTORY: Shortness of breath. COMPARISON: None FINDINGS: Cardiac size is mildly enlarged. Mild CHF. Small effusions. No dense infiltrate..
--- NOTE | 2016-10-19 14:20 | PCM.PN ---
- General Info Date of Service: 10/19/16 Functional Status: Reports: Tolerating Diet, Urinating - Review of Systems General: Denies: Fever, Weakness, Chills Pulmonary: Reports: No Symptoms Cardiovascular: Reports: No Symptoms Gastrointestinal: Reports: No Symptoms Systems Review Comment:: This patient has felt significantly improved since admission with much less shortness of breath continues to notice mild weakness but definitely improved from what she had experienced yesterday. Vital signs have been stable and she has remained afebrile. Hemoglobin improve following transfusion but given her recent symptoms we'll plan to transfuse one additional unit of red blood cells today. Further Lasix later today and again in a.m. Reviewed with her the importance of a 2 g sodium diet. - Patient Data Vitals - Most Recent: Last Vital Signs Temp 98.2 F 10/19/16 14:04 Pulse 85 10/19/16 14:04 Resp 20 10/19/16 14:04 BP 90/47 L 10/19/16 14:04 Pulse Ox 96 10/19/16 14:04 Weight - Most Recent: 239 lb 7.987 oz I&O - Last 24 Hours: Intake & Output 10/18/16 10/19/16 10/19/16 22:59 06:59 14:59 Intake Total 426 1000 Output Total 1000 300 900 Balance -1000 126 100 Lab Results Last 24 Hours: Laboratory Results - last 24 hr 10/19/16 10/19/16 10/19/16 Range/Units 04:00 04:00 04:00 WBC 10.9 (4.5-11.0) K/uL RBC 3.80 (3.30-5.50) M/uL Hgb 8.1 L (12.0-15.0) g/dL Hct 29.8 L (36.0-48.0) % MCV 78 L (80-98) fL MCH 21 L (27-31) pg MCHC 27 L (32-36) % Plt Count 279 (150-400) K/uL Neut % (Auto) 78 H (36-66) % Lymph % (Auto) 11 L (24-44) % Spencer % (Auto) 8 H (2-6) % Eos % (Auto) 3 (2-4) % Baso % (Auto) 0 (0-1) % Sodium 145 (140-148) mmol/L Potassium 4.1 (3.6-5.2) mmol/L Chloride 106 (100-108) mmol/L Carbon Dioxide 35 H (21-32) mmol/L Anion Gap 8.1 (5.0-14.0) mmol/L BUN 26 H (7-18) mg/dL Creatinine 1.2 H (0.6-1.0) mg/dL Est Cr Clr Drug Dosing 30.07 mL/min Estimated GFR (MDRD) 43 L (>60) Glucose 91 (74-106) mg/dL Calcium 8.2 L (8.5-10.1) mg/dL Magnesium 1.9 (1.8-2.4) mg/dL NT-Pro-B Natriuret Pep 626 H (5-450) pg/mL TSH, Ultra Sensitive 2.555 (0.358-3.740) uIU/mL Deep Results Last 24 Hours: Microbiology 10/18/16 23:33 Stool Occult Blood (DEEP) - Final Stool / Feces Med Orders - Current: Current Medications Acetaminophen (Tylenol) 650 mg PO Q4H PRN PRN Reason: Pain (Mild 1-3)/fever Albuterol (Proventil Neb Soln) 2.5 mg NEB Q4H PRN PRN Reason: Shortness Of Breath/wheezing Artificial Tears (Natural Balance Tears) 0 ml EYEBOTH DAILY [facility] Last Admin: 10/19/16 08:40 Dose: 1 drop Aspirin (Aspirin) 81 mg PO DAILY [facility] Last Admin: 10/19/16 08:36 Dose: 81 mg Dextrose (Glutose 15) 15 gm PO ONETIME PRN PRN Reason: Hypoglycemia Dextrose/Water (Dextrose 50% In Water) 50 ml IV ONETIME PRN PRN Reason: Hypoglycemia Docusate Sodium (Colace) 100 mg PO BID PRN PRN Reason: Constipation Enoxaparin Sodium (Lovenox) 30 mg SUBCUT Q24H [facility] Glyburide (Micronase) 2.5 mg PO BID [facility] Last Admin: 10/19/16 08:37 Dose: 2.5 mg Ferric Sodium Gluconate Complex 250 mg/ Sodium Chloride 120 mls @ 60 mls/hr IV Q24H [facility] Stop: 10/19/16 23:59 Indapamide (Indapamide) 2.5 mg PO DAILY [facility] Last Admin: 10/19/16 08:36 Dose: 2.5 mg Insulin Aspart (Novolog) 0 unit SUBCUT QIDACANDBED [facility] PRN Reason: Protocol Last Admin: 10/19/16 11:32 Dose: Not Given Levothyroxine Sodium (Levothyroxine) 112 mcg PO ACBREAKFAST [facility] Last Admin: 10/19/16 08:24 Dose: 112 mcg Lisinopril (Prinivil) 40 mg PO DAILY [facility] Last Admin: 10/19/16 08:40 Dose: 40 mg Magnesium Hydroxide (Milk Of Magnesia) 30 ml PO Q12H PRN PRN Reason: Constipation Metformin HCl (Glucophage) 500 mg PO BIDMEALS [facility] Last Admin: 10/19/16 09:15 Dose: 500 mg Ondansetron HCl (Zofran) 4 mg IV Q4H PRN PRN Reason: Nausea/Vomiting Oxycodone HCl (Oxycodone) 5 mg PO Q4H PRN PRN Reason: Pain (moderate 4-6) Pantoprazole Sodium (Protonix Iv) 40 mg IVPUSH Q12H [facility] Last Admin: 10/19/16 08:41 Dose: 40 mg Polyethylene Glycol (Miralax) 17 gm PO DAILY PRN PRN Reason: Constipation Pramipexole Dihydrochloride (Mirapex) 0.25 mg PO BEDTIME [facility] Last Admin: 10/18/16 22:40 Dose: 0.25 mg Simvastatin (Zocor) 20 mg PO BEDTIME [facility] Last Admin: 10/18/16 22:40 Dose: 20 mg Sodium Chloride (Saline Flush) 10 ml FLUSH ASDIRECTED PRN PRN Reason: Keep Vein Open Timolol Maleate (Betimol 0.5% Ophth Soln) 0 ml EYEBOTH DAILY [facility] Last Admin: 10/19/16 08:37 Dose: 1 drop Tolterodine Tartrate (Detrol) 2 mg PO DAILY [facility] Last Admin: 10/19/16 08:37 Dose: 2 mg Tramadol HCl (Ultram) 100 mg PO TID PRN PRN Reason: Pain Last Admin: 10/18/16 23:22 Dose: 100 mg Discontinued Medications Enoxaparin Sodium (Lovenox) 40 mg SUBCUT DAILY [facility] Last Admin: 10/18/16 22:38 Dose: 40 mg Furosemide (Lasix) 60 mg IVPUSH ONETIME ONE Stop: 10/18/16 18:31 Last Admin: 10/18/16 19:17 Dose: 60 mg Furosemide (Lasix) 40 mg IVPUSH ONETIME ONE Stop: 10/19/16 08:01 Last Admin: 10/19/16 08:41 Dose: 40 mg Sodium Chloride (Normal Saline) 1,000 mls @ 100 mls/hr IV ASDIRECTED [facility] Last Admin: 10/18/16 19:17 Dose: 100 mls/hr Ferric Sodium Gluconate Complex 250 mg/ Sodium Chloride 120 mls @ 120 mls/hr IV Q24H [facility] Stop: 10/19/16 22:59 Last Admin: 10/19/16 00:31 Dose: 120 mls/hr Insulin Aspart (Novolog) 0 unit SUBCUT ONETIME PRN; Protocol PRN Reason: Blood Glucose Stop: 10/19/16 05:00 Metformin HCl (Glucophage) 500 mg PO BID [facility] Last Admin: 10/18/16 22:41 Dose: 500 mg Metformin HCl (Glucophage) Confirm Administered Dose 500 mg .ROUTE .STK-MED ONE Stop: 10/18/16 22:35 Last Admin: 10/18/16 22:51 Dose: Not Given Non-Formulary Medication (Verapamil Hcl [Verapamil Er]) 1 tab PO BID [facility] Last Admin: 10/18/16 22:43 Dose: Not Given Pramipexole Dihydrochloride (Mirapex) 0.5 mg PO BEDTIME [facility] Tramadol HCl (Ultram) 100 mg PO TID [facility] Last Admin: 10/18/16 22:42 Dose: Not Given - Exam Quality Assessment: Supplemental Oxygen, DVT Prophylaxis General: Alert, Oriented, Cooperative, No Acute Distress Lungs: Clear to Auscultation, Normal Respiratory Effort Cardiovascular: Regular Rate, Regular Rhythm, No Murmurs GI/Abdominal Exam: Normal Bowel Sounds, Soft, Non-Tender, No Distention Extremities: Normal Inspection, No Pedal Edema Skin: Warm, Dry, Intact - Problem List Review Problem List Initiated/Reviewed/Updated: Yes - My Orders Last 24 Hours: My Active Orders 10/18/16 20:38 Resuscitation Status Routine 10/18/16 21:03 Patient Status [ADT] Routine Ambulate [RC] QID Blood Glucose Check, Bedside [RC] QIDACANDBED Cardiac Education [RC] Click to Edit Cardiac Monitoring [RC] .As Directed Communication Order [RC] ASDIRECTED Diabetes Education [RC] Click to Edit Intake and Output [RC] QSHIFT Notify Provider Vital Signs [RC] ASDIRECTED Notify Provider [RC] PRN Oxygen Therapy [RC] PRN RT Aerosol Therapy [RC] ASDIRECTED Up With Assistance [RC] ASDIRECTED Up to Chair [RC] QID VTE/DVT Education [RC] Per Unit Routine Vital Signs [RC] Q4H Acetaminophen [Tylenol] 650 mg PO Q4H PRN Albuterol [Proventil Neb Soln] 2.5 mg NEB Q4H PRN Dextrose 50% in Water 50 ml IV ONETIME PRN Dextrose [Glutose 15] 15 gm PO ONETIME PRN Docusate Sodium [Colace] 100 mg PO BID PRN Magnesium Hydroxide [Milk of Magnesia] 30 ml PO Q12H PRN Ondansetron [Zofran] 4 mg IV Q4H PRN Polyethylene Glycol 3350 [MiraLAX] 17 gm PO DAILY PRN Sodium Chloride 0.9% [Saline Flush] 10 ml FLUSH ASDIRECTED PRN oxyCODONE 5 mg PO Q4H PRN Saline Lock Insert [OM.PC] Routine 10/18/16 21:30 Pantoprazole [ProTONIX IV] 40 mg IVPUSH Q12H Pramipexole [Mirapex] 0.25 mg PO BEDTIME 10/18/16 22:22 traMADol [Ultram] 100 mg PO TID PRN 10/19/16 07:00 Insulin Aspart [NovoLOG] See Protocol SUBCUT QIDACANDBED 10/19/16 08:00 metFORMIN [Glucophage] 500 mg PO BIDMEALS 10/19/16 08:10 Transfuse Red Blood Cells [COMM] Urgent 10/19/16 09:00 Hypromellose [Natural Balance Tears] 0 ml EYEBOTH DAILY Timolol [Betimol 0.5% Ophth Soln] 0 ml EYEBOTH DAILY 10/19/16 11:53 Echo Comp wo Cont [US] Urgent 10/19/16 16:30 GLUCOSE POC LAB TO COLLECT [POC] QIDACANDBED 10/19/16 19:00 Furosemide [Lasix] 40 mg IVPUSH Q12H 10/19/16 20:00 Enoxaparin [Lovenox] 30 mg SUBCUT Q24H 10/19/16 21:00 GLUCOSE POC LAB TO COLLECT [POC] QIDACANDBED 10/19/16 22:00 Sodium Ferric Gluconate Cmplex [Ferrlecit IV] 250 mg Sodium Chloride 0.9% [ Normal Saline] 100 ml IV Q24H 10/20/16 05:00 BASIC METABOLIC PANEL,BMP [CHEM] Timed CBC WITH AUTO DIFF [HEME] Timed 10/20/16 07:30 GLUCOSE POC LAB TO COLLECT [POC] QIDACANDBED 10/20/16 11:30 GLUCOSE POC LAB TO COLLECT [POC] QIDACANDBED 10/20/16 16:30 GLUCOSE POC LAB TO COLLECT [POC] QIDACANDBED 10/20/16 21:00 GLUCOSE POC LAB TO COLLECT [POC] QIDACANDBED 10/21/16 07:30 GLUCOSE POC LAB TO COLLECT [POC] QIDACANDBED 10/21/16 11:30 GLUCOSE POC LAB TO COLLECT [POC] QIDACANDBED 10/21/16 16:30 GLUCOSE POC LAB TO COLLECT [POC] QIDACANDBED 10/21/16 21:00 GLUCOSE POC LAB TO COLLECT [POC] QIDACANDBED 10/22/16 07:30 GLUCOSE POC LAB TO COLLECT [POC] QIDACANDBED 10/22/16 11:30 GLUCOSE POC LAB TO COLLECT [POC] QIDACANDBED 10/22/16 16:30 GLUCOSE POC LAB TO COLLECT [POC] QIDACANDBED 10/22/16 21:00 GLUCOSE POC LAB TO COLLECT [POC] QIDACANDBED 10/23/16 07:30 GLUCOSE POC LAB TO COLLECT [POC] QIDACANDBED 10/23/16 11:30 GLUCOSE POC LAB TO COLLECT [POC] QIDACANDBED 10/23/16 16:30 GLUCOSE POC LAB TO COLLECT [POC] QIDACANDBED 10/23/16 21:00 GLUCOSE POC LAB TO COLLECT [POC] QIDACANDBED 10/24/16 07:30 GLUCOSE POC LAB TO COLLECT [POC] QIDACANDBED 10/24/16 11:30 GLUCOSE POC LAB TO COLLECT [POC] QIDACANDBED 10/24/16 16:30 GLUCOSE POC LAB TO COLLECT [POC] QIDACANDBED 10/24/16 21:00 GLUCOSE POC LAB TO COLLECT [POC] QIDACANDBED 10/25/16 07:30 GLUCOSE POC LAB TO COLLECT [POC] QIDACANDBED 10/25/16 11:30 GLUCOSE POC LAB TO COLLECT [POC] QIDACANDBED 10/25/16 16:30 GLUCOSE POC LAB TO COLLECT [POC] QIDACANDBED 10/25/16 21:00 GLUCOSE POC LAB TO COLLECT [POC] QIDACANDBED 10/26/16 07:30 GLUCOSE POC LAB TO COLLECT [POC] QIDACANDBED 10/26/16 11:30 GLUCOSE POC LAB TO COLLECT [POC] QIDACANDBED 10/26/16 16:30 GLUCOSE POC LAB TO COLLECT [POC] QIDACANDBED 10/26/16 21:00 GLUCOSE POC LAB TO COLLECT [POC] QIDACANDBED 10/27/16 07:30 GLUCOSE POC LAB TO COLLECT [POC] QIDACANDBED 10/27/16 11:30 GLUCOSE POC LAB TO COLLECT [POC] QIDACANDBED 10/27/16 16:30 GLUCOSE POC LAB TO COLLECT [POC] QIDACANDBED 10/27/16 21:00 GLUCOSE POC LAB TO COLLECT [POC] QIDACANDBED 10/28/16 07:30 GLUCOSE POC LAB TO COLLECT [POC] QIDACANDBED 10/28/16 11:30 GLUCOSE POC LAB TO COLLECT [POC] QIDACANDBED 10/28/16 16:30 GLUCOSE POC LAB TO COLLECT [POC] QIDACANDBED 10/28/16 21:00 GLUCOSE POC LAB TO COLLECT [POC] QIDACANDBED 10/29/16 07:30 GLUCOSE POC LAB TO COLLECT [POC] QIDACANDBED 10/29/16 11:30 GLUCOSE POC LAB TO COLLECT [POC] QIDACANDBED 10/29/16 16:30 GLUCOSE POC LAB TO COLLECT [POC] QIDACANDBED 10/29/16 21:00 GLUCOSE POC LAB TO COLLECT [POC] QIDACANDBED - Plan Plan:: ASSESSMENT AND PLAN CONGESTIVE HEART FAILURE WITH PRESERVED LEFT VENTRICULAR FUNCTION-symptoms have been present over the past several months but significantly worse this week. Significant improvement since admission following transfusion as well as diuresis -Saline lock IV -IV Lasix 40 mg every 12 hours -Continue MATEUS inhibitor therapy -Discontinue verapamil -Metoprolol 25 mg by mouth every 6 hours -Echocardiogram has been obtained formal review pending MICROCYTIC ANEMIA-hemoglobin improve following transfusion but given recent symptoms we'll plan to transfuse one additional unit of red blood cells. She has received IV iron infusion which she tolerated well. There is no evidence of active bleeding at the present time -Transfuse one additional unit of red blood cells today -Recheck hemoglobin in a.m. -IV iron replacement -Consider upper and lower endoscopy as an outpatient -Protonix 40 mg by mouth every 12 hours TYPE 2 DIABETES MELLITUS -4 times a day glucometers -Continue outpatient medical regimen -Low-dose sliding scale NovoLog as needed CHRONIC KIDNEY DISEASE STAGE III -Closely monitor urine output and renal function during hospital stay MAINTENANCE ISSUES -DVT prophylaxis; Lovenox 40 mg subcutaneous daily -GI prophylaxis; Protonix 40 mg twice daily -Borges catheter; not indicated -Nutrition; 2 g sodium consistent carb diet -Nicotine dependence; not required CODE STATUS-FULL CODE ADMISSION STATUS-patient will be admitted to inpatient status, expect at least a 2 night hospital stay for evaluation and management of problems as outlined above. At the time of this admission I do not reasonably expected evaluation and management of this problem will require more than a 96 hour hospital stay. DISPOSITION-anticipate discharge to home after the hospital stay. PRIMARY CARE PROVIDER-Dr. Cesar
[2016-10-19] MEDS: Metoprolol Tartrate 25 MG Tab PO SCH ×2 (16:24→21:43)
[2016-10-19] MEDS: Pantoprazole 40 MG Tab.CR PO SCH (16:25)
[2016-10-19] MEDS ORDERED: Enoxaparin 30 MG/0.3 ML Syringe SUBCUT SCH (20:00)
[2016-10-19] MEDS: Furosemide 40 MG/4 ML VIAL IVPUSH SCH (20:12)
[2016-10-19] MEDS: Pramipexole 0.5 MG Tab PO SCH (20:13)
[2016-10-19] MEDS: Simvastatin 20 MG Tab PO SCH (20:14)
[2016-10-19] MEDS ORDERED: Sodium Ferric Gluconate Cmplex 250 MG in Sodium Chloride 0.9% 100 ML IV SCH (22:00)
[2016-10-20] MEDS: Metoprolol Tartrate 25 MG Tab PO SCH ×2 (05:49→11:32)
--- NOTE | 2016-10-20 07:47 | ECHO ---
REFERRING PRACTITIONER: 1. AO ROOT: 3.11 (NL = 2.0-3.7) 2. AORTIC VALVE EXCURSION: 3. LA: 3.84 CM (NL = 1.9-4.0) 4. RV: (NL = .09-2.6) 5. LV DOWLING: 2.47 (NL = 3.5-5.7) 6. LV SYST: 3.39 (NL = 2.2-4.3) 7. FRACTIONAL SHORTENING: (2542) 8. EJECTION FRACTION: 55% TO 60% (5075) 9. IVS: 1.7 (NL = 0.6-1.1) 10. LVPW: 1.47 (NL = 0.6 1.1) INDICATION: Pulmonary edema and hypoxia. By 2D echo left ventricular function appears to be normal consistent with estimated ejection fraction of 55% to 60%. There are no specific wall motion abnormalities, but there is appearance of concentric left ventricular hypertrophy. There is no pericardial effusion seen on this study, but there is a moderate left pleural effusion. Both atria appear to be within normal range for size. Right ventricle is normal in size with normal right ventricular function and left ventricle is normal in size as well as the aortic root. The aortic valve appears to be structurally normal. There is calcification of the mitral valve anulus, but the leaflets appear to be structurally normal. The tricuspid and pulmonic valves are structurally normal in appearance. By Doppler and color Doppler, there is no available estimation of right ventricular pressure. There was no significant tricuspid regurgitation. There is mild mitral regurgitation. IMPRESSION: 1. Normal left ventricular function, estimated ejection fraction of 55% to 60%. 2. Left ventricular hypertrophy. 3. Left pleural effusion. 4. Mild mitral regurgitation. /[id number] JAQUELIN
[2016-10-20] MEDS: Hypromellose 0.4% Ophth Soln 15 ML Bottle EYEBOTH SCH (08:08)
[2016-10-20] MEDS: Tolterodine 2 MG Tab PO SCH (08:09)
[2016-10-20] MEDS: Levothyroxine 112 MCG Tab PO SCH (08:09)
[2016-10-20] MEDS: TIMOLOL HEMIHYDRATE EYEBOTH SCH (08:09)
[2016-10-20] MEDS: Furosemide 40 MG/4 ML VIAL IVPUSH SCH (08:10)
[2016-10-20] MEDS: metFORMIN 500 MG Tab PO SCH ×2 (08:10→17:34)
[2016-10-20] MEDS: Pantoprazole 40 MG Tab.CR PO SCH ×2 (08:10→15:32)
[2016-10-20] MEDS: Aspirin 81 MG Tab.Chew PO SCH (08:10)
[2016-10-20] MEDS: Insulin Aspart 100 Units/ML 3 ML Pen SUBCUT SCH ×4 (08:11→21:44)
[2016-10-20] MEDS: Indapamide 2.5 MG Tab PO SCH (08:14)
[2016-10-20] MEDS: Lisinopril 20 MG Tab PO SCH (08:14)
[2016-10-20] MEDS ORDERED: Bisacodyl 5 MG Tab PO ONE ×2 (11:00→20:00)
--- NOTE | 2016-10-20 12:05 | PCM.PN ---
- General Info Date of Service: 10/20/16 Functional Status: Reports: Pain Controlled, Tolerating Diet, Urinating - Review of Systems General: Reports: Weakness. Denies: Fever, Chills Pulmonary: Reports: Shortness of Breath. Denies: Pleuritic Chest Pain, Cough, Sputum, Hemoptysis Cardiovascular: Reports: Dyspnea on Exertion. Denies: Chest Pain, Palpitations , Orthopnea, PND, Edema Gastrointestinal: Reports: No Symptoms Systems Review Comment:: This patient has remained stable since yesterday, hemoglobin up to 9.8 following transfusion of second unit of red blood cells. There is been no further evidence of active bleeding, she feels significantly improved since admission but does remain hypoxic and continues to require supplemental oxygen. I suspect that her symptoms of progressive weakness over the past urine a half or related to ongoing hypoxia at home and she will likely require supplemental oxygen at the time of discharge. She is agreeable to stay 1 more day and will proceed with colonoscopy prep and plan for colonoscopy with EGD in a.m. by Dr. Ansari for further evaluation of her microcytic anemia. - Patient Data Vitals - Most Recent: Last Vital Signs Temp 97.3 F 10/20/16 11:26 Pulse 76 10/20/16 11:26 Resp 20 10/20/16 11:26 BP 102/58 L 10/20/16 11:26 Pulse Ox 94 L 10/20/16 11:26 Weight - Most Recent: 236 lb 6 oz I&O - Last 24 Hours: Intake & Output 10/19/16 10/20/16 10/20/16 22:59 06:59 14:59 Intake Total 574 960 Output Total 925 500 300 Balance -351 460 -300 Lab Results Last 24 Hours: Laboratory Results - last 24 hr 10/20/16 10/20/16 Range/Units 05:10 05:10 WBC 11.3 H (4.5-11.0) K/uL RBC 4.56 (3.30-5.50) M/uL Hgb 9.8 L (12.0-15.0) g/dL Hct 34.1 L (36.0-48.0) % MCV 75 L (80-98) fL MCH 22 L (27-31) pg MCHC 29 L (32-36) % Plt Count 309 (150-400) K/uL Neut % (Auto) 75 H (36-66) % Lymph % (Auto) 11 L (24-44) % [place] % (Auto) 10 H (2-6) % Eos % (Auto) 4 (2-4) % Baso % (Auto) 0 (0-1) % Sodium 144 (140-148) mmol/L Potassium 3.7 (3.6-5.2) mmol/L Chloride 102 (100-108) mmol/L Carbon Dioxide 36 H (21-32) mmol/L Anion Gap 9.7 (5.0-14.0) mmol/L BUN 27 H (7-18) mg/dL Creatinine 1.2 H (0.6-1.0) mg/dL Est Cr Clr Drug Dosing 29.80 mL/min Estimated GFR (MDRD) 43 L (>60) Glucose 90 (74-106) mg/dL Calcium 8.1 L (8.5-10.1) mg/dL Med Orders - Current: Current Medications Acetaminophen (Tylenol) 650 mg PO Q4H PRN PRN Reason: Pain (Mild 1-3)/fever Albuterol (Proventil Neb Soln) 2.5 mg NEB Q4H PRN PRN Reason: Shortness Of Breath/wheezing Artificial Tears (Natural Balance Tears) 0 ml EYEBOTH DAILY [facility] Last Admin: 10/20/16 08:08 Dose: 1 drop Aspirin (Aspirin) 81 mg PO DAILY [facility] Last Admin: 10/20/16 08:10 Dose: 81 mg Bisacodyl (Dulcolax) 10 mg PO ONETIME ONE Stop: 10/20/16 20:01 Carvedilol (Coreg) 6.25 mg PO BID [facility] Dextrose (Glutose 15) 15 gm PO ONETIME PRN PRN Reason: Hypoglycemia Dextrose/Water (Dextrose 50% In Water) 50 ml IV ONETIME PRN PRN Reason: Hypoglycemia Docusate Sodium (Colace) 100 mg PO BID PRN PRN Reason: Constipation Glyburide (Micronase) 2.5 mg PO BID [facility] Last Admin: 10/20/16 08:10 Dose: 2.5 mg Indapamide (Indapamide) 2.5 mg PO DAILY [facility] Last Admin: 10/20/16 08:14 Dose: 2.5 mg Insulin Aspart (Novolog) 0 unit SUBCUT QIDACANDBED [facility] PRN Reason: Protocol Last Admin: 10/20/16 11:28 Dose: Not Given Levothyroxine Sodium (Levothyroxine) 112 mcg PO ACBREAKFAST [facility] Last Admin: 10/20/16 08:09 Dose: 112 mcg Lisinopril (Prinivil) 40 mg PO DAILY [facility] Last Admin: 10/20/16 08:14 Dose: 40 mg Magnesium Hydroxide (Milk Of Magnesia) 30 ml PO Q12H PRN PRN Reason: Constipation Metformin HCl (Glucophage) 500 mg PO BIDMEALS [facility] Last Admin: 10/20/16 08:10 Dose: 500 mg Ondansetron HCl (Zofran) 4 mg IV Q4H PRN PRN Reason: Nausea/Vomiting Oxycodone HCl (Oxycodone) 5 mg PO Q4H PRN PRN Reason: Pain (moderate 4-6) Pantoprazole Sodium (Protonix) 40 mg PO BIDAC [facility] Last Admin: 10/20/16 08:10 Dose: 40 mg Polyethylene Glycol (Miralax) 17 gm PO DAILY PRN PRN Reason: Constipation Polyethylene Glycol (Miralax) 238 gm PO ONETIME ONE Stop: 10/20/16 17:01 Pramipexole Dihydrochloride (Mirapex) 0.25 mg PO BEDTIME [facility] Last Admin: 10/19/16 20:13 Dose: 0.25 mg Simvastatin (Zocor) 20 mg PO BEDTIME [facility] Last Admin: 10/19/16 20:14 Dose: 20 mg Sodium Chloride (Saline Flush) 10 ml FLUSH ASDIRECTED PRN PRN Reason: Keep Vein Open Timolol Maleate (Betimol 0.5% Ophth Soln) 0 ml EYEBOTH DAILY [facility] Last Admin: 10/20/16 08:09 Dose: 1 drop Tolterodine Tartrate (Detrol) 2 mg PO DAILY [facility] Last Admin: 10/20/16 08:09 Dose: 2 mg Tramadol HCl (Ultram) 100 mg PO TID PRN PRN Reason: Pain Last Admin: 10/18/16 23:22 Dose: 100 mg Discontinued Medications Bisacodyl (Dulcolax) 10 mg PO ONETIME ONE Stop: 10/20/16 11:01 Last Admin: 10/20/16 11:29 Dose: 10 mg Enoxaparin Sodium (Lovenox) 40 mg SUBCUT DAILY [facility] Last Admin: 10/18/16 22:38 Dose: 40 mg Enoxaparin Sodium (Lovenox) 30 mg SUBCUT Q24H [facility] Last Admin: 10/19/16 20:14 Dose: 30 mg Furosemide (Lasix) 60 mg IVPUSH ONETIME ONE Stop: 10/18/16 18:31 Last Admin: 10/18/16 19:17 Dose: 60 mg Furosemide (Lasix) 40 mg IVPUSH ONETIME ONE Stop: 10/19/16 08:01 Last Admin: 10/19/16 08:41 Dose: 40 mg Furosemide (Lasix) 40 mg IVPUSH Q12H [facility] Last Admin: 10/20/16 08:10 Dose: 40 mg Sodium Chloride (Normal Saline) 1,000 mls @ 100 mls/hr IV ASDIRECTED [facility] Last Admin: 10/18/16 19:17 Dose: 100 mls/hr Ferric Sodium Gluconate Complex 250 mg/ Sodium Chloride 120 mls @ 120 mls/hr IV Q24H [facility] Stop: 10/19/16 22:59 Last Admin: 10/19/16 00:31 Dose: 120 mls/hr Ferric Sodium Gluconate Complex 250 mg/ Sodium Chloride 120 mls @ 60 mls/hr IV Q24H [facility] Stop: 10/19/16 23:59 Last Admin: 10/19/16 21:46 Dose: 60 mls/hr Insulin Aspart (Novolog) 0 unit SUBCUT ONETIME PRN; Protocol PRN Reason: Blood Glucose Stop: 10/19/16 05:00 Metformin HCl (Glucophage) 500 mg PO BID [facility] Last Admin: 10/18/16 22:41 Dose: 500 mg Metformin HCl (Glucophage) Confirm Administered Dose 500 mg .ROUTE .STK-MED ONE Stop: 10/18/16 22:35 Last Admin: 10/18/16 22:51 Dose: Not Given Metoprolol Tartrate (Lopressor) 25 mg PO Q6H [facility] Last Admin: 10/20/16 11:32 Dose: Not Given Non-Formulary Medication (Verapamil Hcl [Verapamil Er]) 1 tab PO BID [facility] Last Admin: 10/18/16 22:43 Dose: Not Given Pantoprazole Sodium (Protonix Iv) 40 mg IVPUSH Q12H [facility] Last Admin: 10/19/16 08:41 Dose: 40 mg Pramipexole Dihydrochloride (Mirapex) 0.5 mg PO BEDTIME [facility] Tramadol HCl (Ultram) 100 mg PO TID [facility] Last Admin: 10/18/16 22:42 Dose: Not Given - Exam Quality Assessment: Supplemental Oxygen, DVT Prophylaxis General: Alert, Oriented, Cooperative, No Acute Distress Lungs: Clear to Auscultation, Normal Respiratory Effort, Decreased Breath Sounds. No: Rales, Rhonchi, Rub, Stridor, Wheezing Cardiovascular: Regular Rate, Regular Rhythm, No Murmurs GI/Abdominal Exam: Normal Bowel Sounds, Soft, Non-Tender, No Distention Extremities: Normal Inspection, No Pedal Edema Skin: Warm, Dry, Intact - Problem List Review Problem List Initiated/Reviewed/Updated: Yes - My Orders Last 24 Hours: My Active Orders 10/19/16 16:30 Pantoprazole [ProTONIX] 40 mg PO BIDAC 10/20/16 16:30 GLUCOSE POC LAB TO COLLECT [POC] QIDACANDBED 10/20/16 17:00 Polyethylene Glycol 3350 [MiraLAX] 238 gm PO ONETIME ONE 10/20/16 20:00 Bisacodyl [Dulcolax] 10 mg PO ONETIME ONE 10/20/16 21:00 GLUCOSE POC LAB TO COLLECT [POC] QIDACANDBED Carvedilol [Coreg] 6.25 mg PO BID 10/20/16 Lunch Clear Liquid Diet [DIET] 10/21/16 05:00 BASIC METABOLIC PANEL,BMP [CHEM] Timed CBC WITH AUTO DIFF [HEME] Timed 10/21/16 07:30 GLUCOSE POC LAB TO COLLECT [POC] QIDACANDBED 10/21/16 11:30 GLUCOSE POC LAB TO COLLECT [POC] QIDACANDBED 10/21/16 16:30 GLUCOSE POC LAB TO COLLECT [POC] QIDACANDBED 10/21/16 21:00 GLUCOSE POC LAB TO COLLECT [POC] QIDACANDBED 10/21/16 Breakfast NPO After Midnight [Nothing per Oral After Midnight Diet] [DIET] 10/22/16 07:30 GLUCOSE POC LAB TO COLLECT [POC] QIDACANDBED 10/22/16 11:30 GLUCOSE POC LAB TO COLLECT [POC] QIDACANDBED 10/22/16 16:30 GLUCOSE POC LAB TO COLLECT [POC] QIDACANDBED 10/22/16 21:00 GLUCOSE POC LAB TO COLLECT [POC] QIDACANDBED 10/23/16 07:30 GLUCOSE POC LAB TO COLLECT [POC] QIDACANDBED 10/23/16 11:30 GLUCOSE POC LAB TO COLLECT [POC] QIDACANDBED 10/23/16 16:30 GLUCOSE POC LAB TO COLLECT [POC] QIDACANDBED 10/23/16 21:00 GLUCOSE POC LAB TO COLLECT [POC] QIDACANDBED 10/24/16 07:30 GLUCOSE POC LAB TO COLLECT [POC] QIDACANDBED 10/24/16 11:30 GLUCOSE POC LAB TO COLLECT [POC] QIDACANDBED 10/24/16 16:30 GLUCOSE POC LAB TO COLLECT [POC] QIDACANDBED 10/24/16 21:00 GLUCOSE POC LAB TO COLLECT [POC] QIDACANDBED 10/25/16 07:30 GLUCOSE POC LAB TO COLLECT [POC] QIDACANDBED 10/25/16 11:30 GLUCOSE POC LAB TO COLLECT [POC] QIDACANDBED 10/25/16 16:30 GLUCOSE POC LAB TO COLLECT [POC] QIDACANDBED 10/25/16 21:00 GLUCOSE POC LAB TO COLLECT [POC] QIDACANDBED 10/26/16 07:30 GLUCOSE POC LAB TO COLLECT [POC] QIDACANDBED 10/26/16 11:30 GLUCOSE POC LAB TO COLLECT [POC] QIDACANDBED 10/26/16 16:30 GLUCOSE POC LAB TO COLLECT [POC] QIDACANDBED 10/26/16 21:00 GLUCOSE POC LAB TO COLLECT [POC] QIDACANDBED 10/27/16 07:30 GLUCOSE POC LAB TO COLLECT [POC] QIDACANDBED 10/27/16 11:30 GLUCOSE POC LAB TO COLLECT [POC] QIDACANDBED 10/27/16 16:30 GLUCOSE POC LAB TO COLLECT [POC] QIDACANDBED 10/27/16 21:00 GLUCOSE POC LAB TO COLLECT [POC] QIDACANDBED 10/28/16 07:30 GLUCOSE POC LAB TO COLLECT [POC] QIDACANDBED 10/28/16 11:30 GLUCOSE POC LAB TO COLLECT [POC] QIDACANDBED 10/28/16 16:30 GLUCOSE POC LAB TO COLLECT [POC] QIDACANDBED 10/28/16 21:00 GLUCOSE POC LAB TO COLLECT [POC] QIDACANDBED 10/29/16 07:30 GLUCOSE POC LAB TO COLLECT [POC] QIDACANDBED 10/29/16 11:30 GLUCOSE POC LAB TO COLLECT [POC] QIDACANDBED 10/29/16 16:30 GLUCOSE POC LAB TO COLLECT [POC] QIDACANDBED 10/29/16 21:00 GLUCOSE POC LAB TO COLLECT [POC] QIDACANDBED - Plan Plan:: ASSESSMENT AND PLAN CONGESTIVE HEART FAILURE WITH PRESERVED LEFT VENTRICULAR FUNCTION-symptoms have been present over the past several months but significantly worse this week. Significant improvement since admission following transfusion as well as diuresis. Echocardiogram shows preserved left ventricular function. -Saline lock IV -Hold on further diuretic therapy pending colonoscopy prep and colonoscopy -Continue MATEUS inhibitor therapy -Discontinue verapamil -Carvedilol 6.25 mg by mouth twice a day MICROCYTIC hemoglobin level good after transfusion of one additional unit of red blood cells -Recheck hemoglobin in a.m. -IV iron replacement, completed -Upper and lower GI endoscopy by Dr. Ansari in a.m. -Protonix 40 mg by mouth every 12 hours TYPE 2 DIABETES MELLITUS -4 times a day glucometers -Continue outpatient medical regimen -Low-dose sliding scale NovoLog as needed CHRONIC KIDNEY DISEASE STAGE III -Closely monitor urine output and renal function during hospital stay MAINTENANCE ISSUES -DVT prophylaxis; Lovenox 40 mg subcutaneous daily -GI prophylaxis; Protonix 40 mg twice daily -Borges catheter; not indicated -Nutrition; 2 g sodium consistent carb diet -Nicotine dependence; not required CODE STATUS-FULL CODE ADMISSION STATUS-patient will be admitted to inpatient status, expect at least a 2 night hospital stay for evaluation and management of problems as outlined above. At the time of this admission I do not reasonably expected evaluation and management of this problem will require more than a 96 hour hospital stay. DISPOSITION-anticipate discharge to home after the hospital stay. PRIMARY CARE PROVIDER-Dr. Cesar
[2016-10-20] MEDS: traMADol 50 MG Tab PO PRN ×2 (13:38→23:18)
[2016-10-20] MEDS ORDERED: Polyethylene Glycol 3350 Powder 238 GM Bot PO ONE (17:00)
[2016-10-20] MEDS: Pramipexole 0.5 MG Tab PO SCH (21:46)
[2016-10-20] MEDS: Simvastatin 20 MG Tab PO SCH (21:46)
[2016-10-20] MEDS: Carvedilol 6.25 MG Tab PO SCH (21:46)
[2016-10-20] MEDS: Ondansetron 4 MG/2 ML SDV IV PRN (23:46)
[2016-10-21] MEDS: Ondansetron 4 MG/2 ML SDV IV PRN (06:38)
[2016-10-21] MEDS ORDERED: Metoclopramide 10 MG/2 ML SDV IV ONE (06:48)
[2016-10-21] MEDS: Insulin Aspart 100 Units/ML 3 ML Pen SUBCUT SCH ×4 (08:52→22:22)
[2016-10-21] MEDS ORDERED: Sodium Chloride 0.9% 1,000 ML IV SCH (09:30)
[2016-10-21] MEDS: Potassium Chloride 20 MEQ, Lidocaine 1% 2 ML in Sodium Chloride 0.9% 100 ML IV SCH ×3 (09:43→14:20)
--- NOTE | 2016-10-21 11:23 | CONS ---
DATE OF SERVICE: 10/21/2016 HISTORY OF PRESENT ILLNESS: Dania is having a colonoscopy and EGD this morning by Gallo Ansari MD. Her prep went good. She is having an increasing amount of nausea. She was given Zofran and will be given Reglan shortly. Hemoglobin this morning is 9.1 and white count is 14.1. She was admitted through the emergency department on 10/18/2016 with shortness of breath, hypoxia, and weakness secondary to pulmonary edema and probable congestive heart failure. She was noted to have anemia and has a history of GI bleed approximately 8 years ago. She was admitted to the hospital. Surgery Department was asked for consultation in regard to GI bleed. HOME MEDICATIONS: See EMR. PAST MEDICAL HISTORY: HEENT: Cataract, impaired vision. Cardiovascular: Hypertension. Reports of chronic renal disease, history of arthritis, has hypothyroidism, and insulin- dependent diabetes mellitus. PAST SURGICAL HISTORY: Cataract surgery bilaterally, appendectomy, Ortiz-en-Y gastric bypass surgery, cholecystectomy, kidney stone extraction, and knee replacement. SOCIAL FAMILY HISTORY: Smoking, none. Caffeine drinks coffee. No recreational use of drugs. REVIEW OF SYSTEMS: GENERAL: No fever, chills, night sweats, or fatigue. Reports weakness. HEENT: Negative. LUNGS: Shortness of breath. Denies any wheezing. CARDIOVASCULAR: Denies any chest pain, palpitations. Does report shortness of breath, PND, edema, and feeling lightheaded when she stands up. GI: Reports extensive nausea right now, which is new for her. : Negative. MUSCULOSKELETAL: Chronic back and joint pain. SKIN: Negative. PSYCHIATRIC: Negative for depression, anxiety, or insomnia. NEUROLOGICAL: No headaches, dizziness, loss of coordination. HEMOLYTIC: History of anemia. Remainder of review of systems is negative for any pertinent positives and negatives. OBJECTIVE: GENERAL: Dania Preston is a 81-year-old female. VITAL SIGNS: Height is 5 feet 1.81 inches, weight is 237 pounds, BMI is 43.6, TPR is 95, 273, 18. Blood pressure 103/45. She is currently sitting on the bed, extremely nauseated. HEENT: Negative. NECK: Negative. HEART: Regular rate and rhythm. LUNGS: Clear. ABDOMEN: Deferred. She will be coming down for an EGD and colonoscopy. Exam deferred due to extensive nausea. EXTREMITIES: Without peripheral edema. NEUROLOGIC: Intact. ASSESSMENT: 1. Gastrointestinal bleed. No evidence of active bleeding. 2. Microcytic anemia. 2 units of blood have been transfused at this hospitalization. 3. Type 2 diabetes mellitus. 4. Chronic kidney disease, stage 3. 5. Hypoxia and this should be chronologically order. 6. SP Ortiz-en-Y gastric bypass surgery. 7. Unspecified surgical malabsorption, B12 deficiency, and vitamin D deficiency. PLAN: Bariatric followup labs will be drawn. She currently is not taking any of the recommended vitamins and these will be ordered today. EGD colonoscopy. Orders will be written after the procedure has done. We will evaluate p.r.n. or in the a.m. Margaret Castrejon PA-C /[id number]
[2016-10-21] MEDS: TIMOLOL HEMIHYDRATE EYEBOTH SCH (11:39)
[2016-10-21] MEDS: Hypromellose 0.4% Ophth Soln 15 ML Bottle EYEBOTH SCH (11:40)
[2016-10-21] MEDS ORDERED: Propofol 200 MG/20 ML SDV ONE (11:56)
[2016-10-21] MEDS ORDERED: Midazolam 1 MG/ML 2 ML SDV ONE (11:57)
[2016-10-21] MEDS ORDERED: fentaNYL 100 MCG/2 ML SDV ONE (11:57)
[2016-10-21] MEDS: metFORMIN 500 MG Tab PO SCH ×2 (14:23→18:07)
[2016-10-21] MEDS: Pantoprazole 40 MG Tab.CR PO SCH ×2 (14:23→18:07)
[2016-10-21] MEDS: Carvedilol 6.25 MG Tab PO SCH (14:24)
[2016-10-21] MEDS: Lisinopril 20 MG Tab PO SCH (14:25)
[2016-10-21] MEDS: Indapamide 2.5 MG Tab PO SCH (15:09)
[2016-10-21] MEDS: Levothyroxine 112 MCG Tab PO SCH (16:53)
--- NOTE | 2016-10-21 17:22 | PCM.PN ---
- General Info Date of Service: 10/21/16 Functional Status: Reports: Pain Controlled, Tolerating Diet - Review of Systems General: Reports: Weakness. Denies: Fever, Chills Pulmonary: Reports: Shortness of Breath. Denies: Pleuritic Chest Pain, Cough, Wheezing Cardiovascular: Reports: Dyspnea on Exertion. Denies: Chest Pain, Palpitations , Orthopnea, PND, Lightheadedness Gastrointestinal: Reports: No Symptoms Systems Review Comment:: This patient did well with her colonoscopy prep, blood pressures have been trending somewhat low. She otherwise has been hemodynamically stable and afebrile. Formal results from EGD and colonoscopy are pending. - Patient Data Vitals - Most Recent: Last Vital Signs Temp 97.7 F 10/21/16 15:33 Pulse 71 10/21/16 15:33 Resp 18 10/21/16 15:33 BP 103/52 L 10/21/16 15:33 Pulse Ox 96 10/21/16 15:33 Weight - Most Recent: 237 lb I&O - Last 24 Hours: Intake & Output 10/21/16 10/21/16 10/21/16 06:59 14:59 22:59 Intake Total 120 400 Output Total 200 Balance 120 400 -200 Lab Results Last 24 Hours: Laboratory Results - last 24 hr 10/21/16 10/21/16 10/21/16 Range/Units 04:50 04:50 05:00 WBC 14.1 H (4.5-11.0) K/uL RBC 4.23 (3.30-5.50) M/uL Hgb 9.1 L (12.0-15.0) g/dL Hct 31.9 L (36.0-48.0) % MCV 75 L (80-98) fL MCH 22 L (27-31) pg MCHC 29 L (32-36) % Plt Count 277 (150-400) K/uL Neut % (Auto) 83 H (36-66) % Lymph % (Auto) 8 L (24-44) % Drew % (Auto) 6 (2-6) % Eos % (Auto) 2 (2-4) % Baso % (Auto) 0 (0-1) % Sodium 138 L (140-148) mmol/L Potassium 3.5 L (3.6-5.2) mmol/L Chloride 97 L (100-108) mmol/L Carbon Dioxide 34 H (21-32) mmol/L Anion Gap 10.5 (5.0-14.0) mmol/L BUN 26 H (7-18) mg/dL Creatinine 1.5 H (0.6-1.0) mg/dL Est Cr Clr Drug Dosing 23.84 mL/min Estimated GFR (MDRD) 33 L (>60) Glucose 218 H (74-106) mg/dL Calcium 7.7 L (8.5-10.1) mg/dL Phosphorus 6.6 H (2.5-4.9) mg/dL Magnesium 1.9 (1.8-2.4) mg/dL Ferritin 159 (8-388) ng/ml Vitamin B12 1771 H (193-986) pg/ml Med Orders - Current: Current Medications Acetaminophen (Tylenol) 650 mg PO Q4H PRN PRN Reason: Pain (Mild 1-3)/fever Albuterol (Proventil Neb Soln) 2.5 mg NEB Q4H PRN PRN Reason: Shortness Of Breath/wheezing Artificial Tears (Natural Balance Tears) 0 ml EYEBOTH DAILY [facility] Last Admin: 10/21/16 11:40 Dose: 1 drop Aspirin (Aspirin) 81 mg PO DAILY [facility] Last Admin: 10/20/16 08:10 Dose: 81 mg Carvedilol (Coreg) 6.25 mg PO BID [facility] Last Admin: 10/21/16 14:24 Dose: Not Given Dextrose (Glutose 15) 15 gm PO ONETIME PRN PRN Reason: Hypoglycemia Dextrose/Water (Dextrose 50% In Water) 50 ml IV ONETIME PRN PRN Reason: Hypoglycemia Docusate Sodium (Colace) 100 mg PO BID PRN PRN Reason: Constipation Glyburide (Micronase) 2.5 mg PO BID [facility] Last Admin: 10/21/16 14:24 Dose: Not Given Insulin Aspart (Novolog) 0 unit SUBCUT QIDACANDBED [facility] PRN Reason: Protocol Last Admin: 10/21/16 16:55 Dose: Not Given Levothyroxine Sodium (Levothyroxine) 112 mcg PO ACBREAKFAST [facility] Last Admin: 10/21/16 16:53 Dose: 112 mcg Lisinopril (Prinivil) 10 mg PO DAILY [facility] Magnesium Hydroxide (Milk Of Magnesia) 30 ml PO Q12H PRN PRN Reason: Constipation Metformin HCl (Glucophage) 500 mg PO BIDMEALS [facility] Last Admin: 10/21/16 14:23 Dose: Not Given Ondansetron HCl (Zofran) 4 mg IV Q4H PRN PRN Reason: Nausea/Vomiting Last Admin: 10/21/16 06:38 Dose: 4 mg Oxycodone HCl (Oxycodone) 5 mg PO Q4H PRN PRN Reason: Pain (moderate 4-6) Pantoprazole Sodium (Protonix) 40 mg PO BIDAC [facility] Last Admin: 10/21/16 14:23 Dose: Not Given Polyethylene Glycol (Miralax) 17 gm PO DAILY PRN PRN Reason: Constipation Pramipexole Dihydrochloride (Mirapex) 0.25 mg PO BEDTIME [facility] Last Admin: 10/20/16 21:46 Dose: 0.25 mg Simvastatin (Zocor) 20 mg PO BEDTIME [facility] Last Admin: 10/20/16 21:46 Dose: 20 mg Sodium Chloride (Saline Flush) 10 ml FLUSH ASDIRECTED PRN PRN Reason: Keep Vein Open Timolol Maleate (Betimol 0.5% Ophth Soln) 0 ml EYEBOTH DAILY [facility] Last Admin: 10/21/16 11:39 Dose: 1 drop Tolterodine Tartrate (Detrol) 2 mg PO DAILY [facility] Last Admin: 10/20/16 08:09 Dose: 2 mg Tramadol HCl (Ultram) 100 mg PO TID PRN PRN Reason: Pain Last Admin: 10/20/16 23:18 Dose: 100 mg Discontinued Medications Bisacodyl (Dulcolax) 10 mg PO ONETIME ONE Stop: 10/20/16 11:01 Last Admin: 10/20/16 11:29 Dose: 10 mg Bisacodyl (Dulcolax) 10 mg PO ONETIME ONE Stop: 10/20/16 20:01 Last Admin: 10/20/16 19:47 Dose: 10 mg Enoxaparin Sodium (Lovenox) 40 mg SUBCUT DAILY [facility] Last Admin: 10/18/16 22:38 Dose: 40 mg Enoxaparin Sodium (Lovenox) 30 mg SUBCUT Q24H [facility] Last Admin: 10/19/16 20:14 Dose: 30 mg Fentanyl (Sublimaze) Confirm Administered Dose 100 mcg .ROUTE .STK-MED ONE Stop: 10/21/16 11:58 Furosemide (Lasix) 60 mg IVPUSH ONETIME ONE Stop: 10/18/16 18:31 Last Admin: 10/18/16 19:17 Dose: 60 mg Furosemide (Lasix) 40 mg IVPUSH ONETIME ONE Stop: 10/19/16 08:01 Last Admin: 10/19/16 08:41 Dose: 40 mg Furosemide (Lasix) 40 mg IVPUSH Q12H [facility] Last Admin: 10/20/16 08:10 Dose: 40 mg Sodium Chloride (Normal Saline) 1,000 mls @ 100 mls/hr IV ASDIRECTED [facility] Last Admin: 10/18/16 19:17 Dose: 100 mls/hr Ferric Sodium Gluconate Complex 250 mg/ Sodium Chloride 120 mls @ 120 mls/hr IV Q24H [facility] Stop: 10/19/16 22:59 Last Admin: 10/19/16 00:31 Dose: 120 mls/hr Ferric Sodium Gluconate Complex 250 mg/ Sodium Chloride 120 mls @ 60 mls/hr IV Q24H [facility] Stop: 10/19/16 23:59 Last Admin: 10/19/16 21:46 Dose: 60 mls/hr Potassium Chloride 20 meq/Lidocaine HCl 2 ml/ Sodium Chloride 112 mls @ 56 mls/ hr IV Q2H [facility] Stop: 10/21/16 14:59 Last Admin: 10/21/16 14:20 Dose: 56 mls/hr Sodium Chloride (Normal Saline) 1,000 mls @ 50 mls/hr IV ASDIRECTED [facility] Last Admin: 10/21/16 09:43 Dose: 50 mls/hr Indapamide (Indapamide) 2.5 mg PO DAILY [facility] Last Admin: 10/21/16 15:09 Dose: Not Given Insulin Aspart (Novolog) 0 unit SUBCUT ONETIME PRN; Protocol PRN Reason: Blood Glucose Stop: 10/19/16 05:00 Lisinopril (Prinivil) 40 mg PO DAILY [facility] Last Admin: 10/21/16 14:25 Dose: Not Given Metformin HCl (Glucophage) 500 mg PO BID [facility] Last Admin: 10/18/16 22:41 Dose: 500 mg Metformin HCl (Glucophage) Confirm Administered Dose 500 mg .ROUTE .STK-MED ONE Stop: 10/18/16 22:35 Last Admin: 10/18/16 22:51 Dose: Not Given Metoclopramide HCl (Reglan) 10 mg IV ONETIME ONE Stop: 10/21/16 06:49 Last Admin: 10/21/16 07:11 Dose: 10 mg Metoprolol Tartrate (Lopressor) 25 mg PO Q6H [facility] Last Admin: 10/20/16 11:32 Dose: Not Given Midazolam HCl (Versed 1 Mg/Ml) Confirm Administered Dose 2 mg .ROUTE .STK-MED ONE Stop: 10/21/16 11:58 Non-Formulary Medication (Verapamil Hcl [Verapamil Er]) 1 tab PO BID [facility] Last Admin: 10/18/16 22:43 Dose: Not Given Pantoprazole Sodium (Protonix Iv) 40 mg IVPUSH Q12H [facility] Last Admin: 10/19/16 08:41 Dose: 40 mg Polyethylene Glycol (Miralax) 238 gm PO ONETIME ONE Stop: 10/20/16 17:01 Last Admin: 10/20/16 17:35 Dose: 238 gm Pramipexole Dihydrochloride (Mirapex) 0.5 mg PO BEDTIME [facility] Propofol (Diprivan 20 Ml) Confirm Administered Dose 200 mg .ROUTE .STK-MED ONE Stop: 10/21/16 11:57 Tramadol HCl (Ultram) 100 mg PO TID [facility] Last Admin: 10/18/16 22:42 Dose: Not Given - Exam General: Alert, Oriented, Cooperative, No Acute Distress Lungs: Clear to Auscultation, Normal Respiratory Effort Cardiovascular: Regular Rate, Regular Rhythm, No Murmurs GI/Abdominal Exam: Normal Bowel Sounds, Soft, Non-Tender, No Distention Extremities: Non-Tender, Pedal Edema Skin: Warm, Dry, Intact - Problem List Review Problem List Initiated/Reviewed/Updated: Yes - My Orders Last 24 Hours: My Active Orders 10/20/16 21:00 Carvedilol [Coreg] 6.25 mg PO BID 10/21/16 07:30 RT Evaluate for Home Oxygen [RC] Click to Edit 10/21/16 17:15 Convert IV to Saline Lock [OM.PC] Routine 10/21/16 21:00 GLUCOSE POC LAB TO COLLECT [POC] QIDACANDBED 10/22/16 05:00 BASIC METABOLIC PANEL,BMP [CHEM] Timed CBC WITH AUTO DIFF [HEME] Timed 10/22/16 07:30 GLUCOSE POC LAB TO COLLECT [POC] QIDACANDBED 10/22/16 09:00 Lisinopril [Prinivil] 10 mg PO DAILY 10/22/16 11:30 GLUCOSE POC LAB TO COLLECT [POC] QIDACANDBED 10/22/16 16:30 GLUCOSE POC LAB TO COLLECT [POC] QIDACANDBED 10/22/16 21:00 GLUCOSE POC LAB TO COLLECT [POC] QIDACANDBED 10/23/16 07:30 GLUCOSE POC LAB TO COLLECT [POC] QIDACANDBED 10/23/16 11:30 GLUCOSE POC LAB TO COLLECT [POC] QIDACANDBED 10/23/16 16:30 GLUCOSE POC LAB TO COLLECT [POC] QIDACANDBED 10/23/16 21:00 GLUCOSE POC LAB TO COLLECT [POC] QIDACANDBED 10/24/16 07:30 GLUCOSE POC LAB TO COLLECT [POC] QIDACANDBED 10/24/16 11:30 GLUCOSE POC LAB TO COLLECT [POC] QIDACANDBED 10/24/16 16:30 GLUCOSE POC LAB TO COLLECT [POC] QIDACANDBED 10/24/16 21:00 GLUCOSE POC LAB TO COLLECT [POC] QIDACANDBED 10/25/16 07:30 GLUCOSE POC LAB TO COLLECT [POC] QIDACANDBED 10/25/16 11:30 GLUCOSE POC LAB TO COLLECT [POC] QIDACANDBED 10/25/16 16:30 GLUCOSE POC LAB TO COLLECT [POC] QIDACANDBED 10/25/16 21:00 GLUCOSE POC LAB TO COLLECT [POC] QIDACANDBED 10/26/16 07:30 GLUCOSE POC LAB TO COLLECT [POC] QIDACANDBED 10/26/16 11:30 GLUCOSE POC LAB TO COLLECT [POC] QIDACANDBED 10/26/16 16:30 GLUCOSE POC LAB TO COLLECT [POC] QIDACANDBED 10/26/16 21:00 GLUCOSE POC LAB TO COLLECT [POC] QIDACANDBED 10/27/16 07:30 GLUCOSE POC LAB TO COLLECT [POC] QIDACANDBED 10/27/16 11:30 GLUCOSE POC LAB TO COLLECT [POC] QIDACANDBED 10/27/16 16:30 GLUCOSE POC LAB TO COLLECT [POC] QIDACANDBED 10/27/16 21:00 GLUCOSE POC LAB TO COLLECT [POC] QIDACANDBED 10/28/16 07:30 GLUCOSE POC LAB TO COLLECT [POC] QIDACANDBED 10/28/16 11:30 GLUCOSE POC LAB TO COLLECT [POC] QIDACANDBED 10/28/16 16:30 GLUCOSE POC LAB TO COLLECT [POC] QIDACANDBED 10/28/16 21:00 GLUCOSE POC LAB TO COLLECT [POC] QIDACANDBED 10/29/16 07:30 GLUCOSE POC LAB TO COLLECT [POC] QIDACANDBED 10/29/16 11:30 GLUCOSE POC LAB TO COLLECT [POC] QIDACANDBED 10/29/16 16:30 GLUCOSE POC LAB TO COLLECT [POC] QIDACANDBED 10/29/16 21:00 GLUCOSE POC LAB TO COLLECT [POC] QIDACANDBED - Plan Plan:: ASSESSMENT AND PLAN CONGESTIVE HEART FAILURE WITH PRESERVED LEFT VENTRICULAR FUNCTION-symptoms have been present over the past several months but significantly worse this week. Significant improvement since admission following transfusion as well as diuresis. Echocardiogram shows preserved left ventricular function. -Saline lock IV -Blood pressure trending low we'll hold on further diuretic therapy today -Decrease lisinopril to 10 mg by mouth daily -Discontinue indapamide -Discontinue verapamil -Carvedilol 6.25 mg by mouth twice a day MICROCYTIC ANEMIA -Recheck hemoglobin in a.m. -IV iron replacement, completed -Upper and lower GI endoscopy results pending -Protonix 40 mg by mouth every 12 hours TYPE 2 DIABETES MELLITUS -4 times a day glucometers -Continue outpatient medical regimen -Low-dose sliding scale NovoLog as needed CHRONIC KIDNEY DISEASE STAGE III -Closely monitor urine output and renal function during hospital stay MAINTENANCE ISSUES -DVT prophylaxis; Lovenox 40 mg subcutaneous daily -GI prophylaxis; Protonix 40 mg twice daily -Borges catheter; not indicated -Nutrition; 2 g sodium consistent carb diet -Nicotine dependence; not required CODE STATUS-FULL CODE ADMISSION STATUS-patient will be admitted to inpatient status, expect at least a 2 night hospital stay for evaluation and management of problems as outlined above. At the time of this admission I do not reasonably expected evaluation and management of this problem will require more than a 96 hour hospital stay. DISPOSITION-anticipate discharge to home after the hospital stay. PRIMARY CARE PROVIDER-Dr. Cesar
[2016-10-21] MEDS: Aspirin 81 MG Tab.Chew PO SCH (18:07)
[2016-10-21] MEDS: Tolterodine 2 MG Tab PO SCH (18:07)
[2016-10-21] MEDS: Pramipexole 0.5 MG Tab PO SCH (20:51)
[2016-10-21] MEDS: Simvastatin 20 MG Tab PO SCH (20:52)
[2016-10-22] MEDS: Insulin Aspart 100 Units/ML 3 ML Pen SUBCUT SCH ×2 (08:23→11:54)
[2016-10-22] MEDS: Pantoprazole 40 MG Tab.CR PO SCH (08:24)
[2016-10-22] MEDS: Hypromellose 0.4% Ophth Soln 15 ML Bottle EYEBOTH SCH (08:28)
[2016-10-22] MEDS: TIMOLOL HEMIHYDRATE EYEBOTH SCH (08:29)
[2016-10-22] MEDS: metFORMIN 500 MG Tab PO SCH (08:30)
[2016-10-22] MEDS ORDERED: Lisinopril 10 MG Tab PO SCH (09:00)
--- NOTE | 2016-10-22 09:13 | PN ---
DATE OF SERVICE: 10/22/2016 HISTORY OF PRESENT ILLNESS: Her upper GI and her colonoscopy were negative with history of Ortiz-en-Y gastric bypass surgery. There may be some GI bleed into the remnant stomach and/or microscopic bleeding in the duodenum. She had a prior episode of GI bleed 5 years ago and the source was not found. Recommend that she be on PPI long-term. She also has been having low oxygen levels and will be evaluated by Kvng Molina MD hospitalist for home O2. REVIEW OF SYSTEMS: HEENT: Negative. NECK: Negative. CHEST: No chest pain, murmur, fast or irregular heart beat. LUNGS: No shortness of breath. ABDOMEN: Denies any pain. No nausea or vomiting. States that has resolved. Has had no red or black stools. : Negative. EXTREMITIES: Revealed joint pain. She states she has chronic back pain. Does not like the hospital bed. NEURO: No headaches or dizziness. PSYCHIATRIC: Negative. Remainder of review of systems negative for any pertinent positives and negatives. OBJECTIVE: GENERAL: Dania Preston is a 81-year-old female. VITAL SIGNS: Height is 5 feet 1.81 inches. Weight is 239 pounds. TPR is 97.7, 68, 19. Blood pressure 92/44. O2 saturations by pulse oximetry 94% on 2 L. HEENT: Negative. NECK: Supple. HEART: Regular rate and rhythm. LUNGS: Clear. ABDOMEN: Soft, nontender. EXTREMITIES: Without peripheral edema. NEURO: Intact. PSYCHIATRIC: Mood and affect appropriate. ASSESSMENT: 1. Gastrointestinal bleed. No evidence of active bleeding. 2. Microcytic anemia, 2 units of blood have been transfused. 3. Type 2 diabetes mellitus. 4. Chronic kidney disease stage 3. 5. Hypoxia. 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 8. B12 deficiency. 9. Vitamin D deficiency. PLAN: To continue long-term PPI treatment. Good pulmonary toilet encouraged. To follow up either with the center of [facility] or with primary care provider. Margaret Castrejon PA-C /[id number]
[2016-10-22] MEDS: Levothyroxine 112 MCG Tab PO SCH (10:37)
[2016-10-22] MEDS: Tolterodine 2 MG Tab PO SCH (10:37)
[2016-10-22] MEDS: Aspirin 81 MG Tab.Chew PO SCH (10:37)
[2016-10-22 11:32] VITALS: BP 105/52
--- NOTE | 2016-10-22 12:51 | PCM.DCSUM1 ---
Discharge Summary - Hospital Course Brief History: Is patient is a 81-year-old woman who was admitted through the emergency department with progressive weakness and shortness of breath. - Discharge Data Discharge Date: 10/22/16 Discharge Disposition: Home, Self-Care 01 Condition: Stable - Discharge Diagnosis/Problem(s) (1) Microcytic anemia SNOMED Code(s): 556743212 ICD Code: D50.9 - IRON DEFICIENCY ANEMIA, UNSPECIFIED Status: Acute Current Visit: Yes (2) Diastolic CHF, acute on chronic SNOMED Code(s): 531166225, 144139784 ICD Code: I50.33 - ACUTE ON CHRONIC DIASTOLIC (CONGESTIVE) HEART FAILURE Status: Acute Current Visit: Yes (3) DORA (acute kidney injury) SNOMED Code(s): 96625478 ICD Code: N17.9 - ACUTE KIDNEY FAILURE, UNSPECIFIED Status: Acute Current Visit: Yes (4) CKD (chronic kidney disease) stage 3, GFR 30-59 ml/min SNOMED Code(s): 778273159 ICD Code: N18.3 - CHRONIC KIDNEY DISEASE, STAGE 3 (MODERATE) Status: Acute Current Visit: Yes (5) Type 2 diabetes mellitus SNOMED Code(s): 36018328 ICD Code: E11.9 - TYPE 2 DIABETES MELLITUS WITHOUT COMPLICATIONS Status: Acute Current Visit: Yes (6) Iron deficiency SNOMED Code(s): 26159251 ICD Code: E61.1 - IRON DEFICIENCY Status: Acute Current Visit: Yes - Patient Summary/Data Consults: Consultations 10/20/16 12:05 Consult to Physician [CONS] Routine Consulting Provider: Gallo Ansari Call Completed to Consulting Physician: Yes Reason for Consult: Microcytic anemia, EGD and colonoscopy 10/22/16 12:18 Consult to Pharmacy [CONS] Routine Quantity: Physician Instructions: Comment: Reason for Consult: Please review new home medication regimen with pt prior to DC Hospital Course: Ms. Preston is a 81-year-old woman who was admitted through the emergency department with symptoms of progressive weakness, lightheadedness, and shortness of breath. She reports that over the last 18 months she has become progressively more short of breath and weak with exertion. She is status post previous Ortiz-en-Y gastric bypass surgery. On evaluation in the emergency department she was noted to have significant anemia with a hemoglobin of 7.6 and a low MCV. Iron level was obtained and found to be low as well. Chest x-ray showed evidence of pulmonary edema and she was noted to be hypoxic on room air. On admission she was transfused one unit of red blood cells and given IV Lasix in the emergency department. By the following morning she reported less shortness of breath, hemoglobin had come up to 8.2. She had been started on IV Protonix twice daily at the time of admission. On the day after admission she was seen and evaluated by Dr. Ansari for surgical consult and an EGD was performed which showed no obvious source of blood loss. Colonoscopy prep was performed and the following day colonoscopy was done by Dr. Ansari which also showed no obvious source of blood loss. 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 Was recommended by Dr. Ansari that she remain on proton pump inhibitor therapy and have regular follow-up of her hemoglobin levels. Because a low iron level she was given 2 doses of IV iron during the hospital stay. Her creatinine was elevated from baseline at the time of admission but had improved and at discharge appeared to have chronic kidney disease stage III. Echocardiogram was obtained and showed preserved left ventricular function, it was felt that she likely has diastolic left ventricular dysfunction. Blood pressure tended to run very low throughout the hospital stay and antihypertensive medications were discontinued including verapamil and indapamide. She was continued on the lisinopril but the dose was decreased from 80 mg twice daily to 10 mg in the evening. She will be discharged home on furosemide 40 mg daily. And is encouraged to follow a low-sodium diet. Activity will be as tolerated and she will resume low-sodium diabetic diet. Blood sugars were monitored throughout her hospital stay and she was managed with low-dose sliding scale NovoLog with improvement in her kidney function she'll be placed back on the metformin and glipizide at the time of discharge. Oxygen levels remain low throughout her hospital stay and she will be discharged home on 2 L of oxygen via nasal cannula. Follow-up appointment will be scheduled with her primary care physician Dr. Cesar within one week, BMP and CBC should be obtained at the time of follow-up appointment. - Patient Instructions Diet: Low Sodium, Diabetic Diet Activity: As Tolerated Other/Special Instructions: Discharge to home with home oxygen, 2 L/m via nasal cannula. Please schedule follow-up appointment with primary care provider Dr. Cesar within one week, BMP and INR should be obtained at the time of follow-up appointment. - Discharge Plan Prescriptions/Med Rec: Lisinopril [Prinivil] 10 mg PO BEDTIME #30 tablet Pantoprazole [ProTONIX] 40 mg PO DAILY #30 tab.cr Home Medications: Home Meds Aspirin 81 mg PO DAILY 10/18/16 [History] Calcium Acetate 3 tab PO TID 10/18/16 [History] Cholecalciferol (Vitamin D3) [Vitamin D3] 1,000 units PO DAILY 10/18/16 [History ] Citric Acid/Potassium Citrate [Polycitra-K] 30 ml PO DAILY 10/18/16 [History] Ferrous Sulfate 325 mg PO DAILY 10/18/16 [History] Furosemide 20 mg PO DAILY 10/18/16 [History] Levothyroxine Sodium [Synthroid] 112 mcg PO ACBREAKFAST 10/18/16 [History] Multivitamin [Multivitamins] 1 tab PO DAILY 10/18/16 [History] Nabumetone [Relafen] 1 tab PO BID 10/18/16 [History] Polyethylene Glycol/Polyvinyl [Hypotears Eye Drops] 1 drop EYEBOTH DAILY [History] Pramipexole Di-HCl [Mirapex] 2 tab PO BEDTIME 10/18/16 [History] Simvastatin [Zocor] 20 mg PO BEDTIME 10/18/16 [History] Timolol [Betimol 0.5% Ophth Soln] 1 drop EYEBOTH DAILY 10/18/16 [History] Tolterodine [Detrol] 2 mg PO DAILY 10/18/16 [History] glyBURIDE/Metformin HCl [Glucovance 2.5-500 MG] 1 tab PO BID 10/18/16 [History] traMADol [Ultram] 100 mg PO TID 10/18/16 [History] Lisinopril [Prinivil] 10 mg PO BEDTIME #30 tablet 10/22/16 [Rx] Pantoprazole [ProTONIX] 40 mg PO DAILY #30 tab.cr 10/22/16 [Rx] Referrals: Bret Cesar MD [Primary Care Provider] - - Patient Data Vitals - Most Recent: Last Vital Signs Temp 98.1 F 10/22/16 11:02 Pulse 67 10/22/16 11:02 Resp 20 10/22/16 11:02 BP 105/52 L 10/22/16 11:02 Pulse Ox 96 10/22/16 11:02 Weight - Most Recent: 239 lb 6.4 oz I&O - Last 24 hours: Intake & Output 10/21/16 10/22/16 10/22/16 22:59 06:59 14:59 Intake Total 745 300 Output Total 400 300 Balance 345 0 Lab Results - Last 24 hrs: Laboratory Results - last 24 hr 10/22/16 10/22/16 Range/Units 05:32 05:32 WBC 11.9 H (4.5-11.0) K/uL RBC 4.60 (3.30-5.50) M/uL Hgb 9.9 L (12.0-15.0) g/dL Hct 35.7 L (36.0-48.0) % MCV 78 L (80-98) fL MCH 22 L (27-31) pg MCHC 28 L (32-36) % Plt Count 320 (150-400) K/uL Neut % (Auto) 81 H (36-66) % Lymph % (Auto) 9 L (24-44) % [place] % (Auto) 8 H (2-6) % Eos % (Auto) 1 L (2-4) % Baso % (Auto) 0 (0-1) % Sodium 141 (140-148) mmol/L Potassium 4.3 (3.6-5.2) mmol/L Chloride 102 (100-108) mmol/L Carbon Dioxide 34 H (21-32) mmol/L Anion Gap 9.3 (5.0-14.0) mmol/L BUN 27 H (7-18) mg/dL Creatinine 1.5 H (0.6-1.0) mg/dL Est Cr Clr Drug Dosing 23.84 mL/min Estimated GFR (MDRD) 33 L (>60) Glucose 93 (74-106) mg/dL Calcium 8.0 L (8.5-10.1) mg/dL Med Orders - Current: Current Medications Acetaminophen (Tylenol) 650 mg PO Q4H PRN PRN Reason: Pain (Mild 1-3)/fever Albuterol (Proventil Neb Soln) 2.5 mg NEB Q4H PRN PRN Reason: Shortness Of Breath/wheezing Artificial Tears (Natural Balance Tears) 0 ml EYEBOTH DAILY [facility] Last Admin: 10/22/16 08:28 Dose: 1 drop Aspirin (Aspirin) 81 mg PO DAILY [facility] Last Admin: 10/22/16 10:37 Dose: 81 mg Dextrose (Glutose 15) 15 gm PO ONETIME PRN PRN Reason: Hypoglycemia Dextrose/Water (Dextrose 50% In Water) 50 ml IV ONETIME PRN PRN Reason: Hypoglycemia Docusate Sodium (Colace) 100 mg PO BID PRN PRN Reason: Constipation Glyburide (Micronase) 2.5 mg PO BID [facility] Last Admin: 10/22/16 08:28 Dose: 2.5 mg Insulin Aspart (Novolog) 0 unit SUBCUT QIDACANDBED [facility] PRN Reason: Protocol Last Admin: 10/22/16 11:54 Dose: Not Given Levothyroxine Sodium (Levothyroxine) 112 mcg PO ACBREAKFAST [facility] Last Admin: 10/22/16 10:37 Dose: 112 mcg Lisinopril (Prinivil) 10 mg PO DAILY [facility] Last Admin: 10/22/16 08:26 Dose: 10 mg Magnesium Hydroxide (Milk Of Magnesia) 30 ml PO Q12H PRN PRN Reason: Constipation Metformin HCl (Glucophage) 500 mg PO BIDMEALS [facility] Last Admin: 10/22/16 08:30 Dose: 500 mg Ondansetron HCl (Zofran) 4 mg IV Q4H PRN PRN Reason: Nausea/Vomiting Last Admin: 10/21/16 06:38 Dose: 4 mg Oxycodone HCl (Oxycodone) 5 mg PO Q4H PRN PRN Reason: Pain (moderate 4-6) Pantoprazole Sodium (Protonix) 40 mg PO BIDAC [facility] Last Admin: 10/22/16 08:24 Dose: 40 mg Polyethylene Glycol (Miralax) 17 gm PO DAILY PRN PRN Reason: Constipation Pramipexole Dihydrochloride (Mirapex) 0.25 mg PO BEDTIME [facility] Last Admin: 10/21/16 20:51 Dose: 0.25 mg Simvastatin (Zocor) 20 mg PO BEDTIME [facility] Last Admin: 10/21/16 20:52 Dose: 20 mg Sodium Chloride (Saline Flush) 10 ml FLUSH ASDIRECTED PRN PRN Reason: Keep Vein Open Timolol Maleate (Betimol 0.5% Ophth Soln) 0 ml EYEBOTH DAILY [facility] Last Admin: 10/22/16 08:29 Dose: 1 drop Tolterodine Tartrate (Detrol) 2 mg PO DAILY [facility] Last Admin: 10/22/16 10:37 Dose: 2 mg Tramadol HCl (Ultram) 100 mg PO TID PRN PRN Reason: Pain Last Admin: 10/20/16 23:18 Dose: 100 mg Discontinued Medications Bisacodyl (Dulcolax) 10 mg PO ONETIME ONE Stop: 10/20/16 11:01 Last Admin: 10/20/16 11:29 Dose: 10 mg Bisacodyl (Dulcolax) 10 mg PO ONETIME ONE Stop: 10/20/16 20:01 Last Admin: 10/20/16 19:47 Dose: 10 mg Carvedilol (Coreg) 6.25 mg PO BID [facility] Last Admin: 10/21/16 14:24 Dose: Not Given Enoxaparin Sodium (Lovenox) 40 mg SUBCUT DAILY [facility] Last Admin: 10/18/16 22:38 Dose: 40 mg Enoxaparin Sodium (Lovenox) 30 mg SUBCUT Q24H [facility] Last Admin: 10/19/16 20:14 Dose: 30 mg Fentanyl (Sublimaze) Confirm Administered Dose 100 mcg .ROUTE .STK-MED ONE Stop: 10/21/16 11:58 Furosemide (Lasix) 60 mg IVPUSH ONETIME ONE Stop: 10/18/16 18:31 Last Admin: 10/18/16 19:17 Dose: 60 mg Furosemide (Lasix) 40 mg IVPUSH ONETIME ONE Stop: 10/19/16 08:01 Last Admin: 10/19/16 08:41 Dose: 40 mg Furosemide (Lasix) 40 mg IVPUSH Q12H [facility] Last Admin: 10/20/16 08:10 Dose: 40 mg Sodium Chloride (Normal Saline) 1,000 mls @ 100 mls/hr IV ASDIRECTED [facility] Last Admin: 10/18/16 19:17 Dose: 100 mls/hr Ferric Sodium Gluconate Complex 250 mg/ Sodium Chloride 120 mls @ 120 mls/hr IV Q24H [facility] Stop: 10/19/16 22:59 Last Admin: 10/19/16 00:31 Dose: 120 mls/hr Ferric Sodium Gluconate Complex 250 mg/ Sodium Chloride 120 mls @ 60 mls/hr IV Q24H [facility] Stop: 10/19/16 23:59 Last Admin: 10/19/16 21:46 Dose: 60 mls/hr Potassium Chloride 20 meq/Lidocaine HCl 2 ml/ Sodium Chloride 112 mls @ 56 mls/ hr IV Q2H [facility] Stop: 10/21/16 14:59 Last Admin: 10/21/16 14:20 Dose: 56 mls/hr Sodium Chloride (Normal Saline) 1,000 mls @ 50 mls/hr IV ASDIRECTED [facility] Last Admin: 10/21/16 09:43 Dose: 50 mls/hr Indapamide (Indapamide) 2.5 mg PO DAILY [facility] Last Admin: 10/21/16 15:09 Dose: Not Given Insulin Aspart (Novolog) 0 unit SUBCUT ONETIME PRN; Protocol PRN Reason: Blood Glucose Stop: 10/19/16 05:00 Lisinopril (Prinivil) 40 mg PO DAILY [facility] Last Admin: 10/21/16 14:25 Dose: Not Given Metformin HCl (Glucophage) 500 mg PO BID [facility] Last Admin: 10/18/16 22:41 Dose: 500 mg Metformin HCl (Glucophage) Confirm Administered Dose 500 mg .ROUTE .STK-MED ONE Stop: 10/18/16 22:35 Last Admin: 10/18/16 22:51 Dose: Not Given Metoclopramide HCl (Reglan) 10 mg IV ONETIME ONE Stop: 10/21/16 06:49 Last Admin: 10/21/16 07:11 Dose: 10 mg Metoprolol Tartrate (Lopressor) 25 mg PO Q6H [facility] Last Admin: 10/20/16 11:32 Dose: Not Given Midazolam HCl (Versed 1 Mg/Ml) Confirm Administered Dose 2 mg .ROUTE .STK-MED ONE Stop: 10/21/16 11:58 Non-Formulary Medication (Verapamil Hcl [Verapamil Er]) 1 tab PO BID [facility] Last Admin: 10/18/16 22:43 Dose: Not Given Pantoprazole Sodium (Protonix Iv) 40 mg IVPUSH Q12H [facility] Last Admin: 10/19/16 08:41 Dose: 40 mg Polyethylene Glycol (Miralax) 238 gm PO ONETIME ONE Stop: 10/20/16 17:01 Last Admin: 10/20/16 17:35 Dose: 238 gm Pramipexole Dihydrochloride (Mirapex) 0.5 mg PO BEDTIME [facility] Propofol (Diprivan 20 Ml) Confirm Administered Dose 200 mg .ROUTE .STK-MED ONE Stop: 10/21/16 11:57 Tramadol HCl (Ultram) 100 mg PO TID [facility] Last Admin: 10/18/16 22:42 Dose: Not Given *Q Meaningful Use (DIS) - VTE *Q VTE Criteria *Q: - Stroke *Q Stroke Criteria *Q: - AMI *Q AMI Criteria *Q:
--- NOTE | 2016-10-24 17:40 | HP ---
PREOPERATIVE DIAGNOSIS: Recent gastrointestinal bleeding. POSTOPERATIVE DIAGNOSES: 1. Gastrointestinal bleeding likely pathology for blood loss seen on upper or lower endoscopy. 2. Gastrointestinal endoscopy showing silastic ring eroded into gastrojejunostomy with otherwise normal exam, status post Ortiz-en-Y gastric bypass. 3. Normal colonoscopic examination. OPERATIVE PROCEDURE: 1. Upper GI endoscopy with removal of foreign body (silastic ring) (01260). 2. Biopsy of gastric pouch for CLOtest (41283). 3. Flexible colonoscopy (01765). ANESTHESIA: IV sedation. INDICATIONS FOR PROCEDURE: This 81-year-old presenting with a picture of a GI bleeding in the recent past. Plan is to proceed with upper and lower endoscopy. Potential risks of procedure including bleeding and perforation were discussed, and the patient wishes to proceed. DESCRIPTION OF PROCEDURE: The patient was taken to the operating room and placed in a left lateral decubitus position. IV sedation was administered after which the upper GI endoscope was passed orally through the length of the esophagus and into the gastric pouch (the patient is status post previous Ortiz-en-Y gastric bypass more than 20 years ago) and from there through the gastrojejunostomy roughly 20 cm into the Ortiz limb. The only abnormality noted was that of an eroded silastic ring into the area of the gastrojejunostomy. This was, however, not associated with any redness or inflammation of the surrounding mucosa and the remainder of the visualized upper GI and endoscopic exam was entirely normal, i.e., there was no evidence of any bleeding of blood, likely bleeding sources on exam. The silastic ring was then grasped, and the suture holding it together was divided, and the silastic ring then removed. The gastroscope was then replaced back into the gastric pouch where biopsies obtained for the CLOtest consistent with the patient's H. pylori status. Minimal bleeding from the biopsy site was seen, and the procedure then concluded. Attention was then taken to the colonoscopy. Digital rectal exam was performed. It was unremarkable. Colonoscope was then passed to the level of the rectum with retroflexion revealing uncomplicated hemorrhoidal columns. The scope was then eventually passed along the cecum. The prep was fairly good with only a small amount of liquid stool present to that level. No abnormalities were noticed. Specifically, no diverticula, no areas of colitis, no polyps, or other signs of neoplasia. Scope was then withdrawn. The above findings reconfirmed, and the procedure concluded. There were no other complications. The patient was taken to the recovery room in satisfactory condition. The patient does not have any obvious bleeding source either from upper GI endoscopy and into the Ortiz-en-Y anatomy or the colonoscopy presently. There is some likelihood that the patient may have some bleeding source that was in the bypassed stomach or duodenum that is not visualized. Should this continue, one course would be to proceed with a laparoscopy and upper endoscopy via a gastrotomy into the bypassed stomach. Gallo Ansari MD /[id number]
== END 2016-10-22 13:46 | disposition home or self-care (01) | DRG 291 ==
LOC: JP.ED 16:58 → UNDOADMIN 20:35 → JP.MS 20:35
PROVIDERS: ADMIT Hospitalist; ATTEND Hospitalist
PROC: 30233N1 Transfusion of Nonautologous Red Blood Cells into Peripheral Vein, Percutaneous Approach (ICD-10-PCS; principal; 2016-10-18)
PROC: 30233N1 Transfusion of Nonautologous Red Blood Cells into Peripheral Vein, Percutaneous Approach (ICD-10-PCS; 2016-10-19)
PROC: 0DC68ZZ Extirpation of Matter from Stomach, Via Natural or Artificial Opening Endoscopic (ICD-10-PCS; 2016-10-21)
PROC: 0DB68ZX Excision of Stomach, Via Natural or Artificial Opening Endoscopic, Diagnostic (ICD-10-PCS; 2016-10-21)
PROC: 0DJD8ZZ Inspection of Lower Intestinal Tract, Via Natural or Artificial Opening Endoscopic (ICD-10-PCS; 2016-10-21)
DX: I13.0 Hypertensive heart and chronic kidney disease with heart failure and stage 1 through stage 4 chronic kidney disease, or unspecified chronic kidney disease (principal); I50.33 Acute on chronic diastolic (congestive) heart failure; N17.9 Acute kidney failure, unspecified; K91.2 Postsurgical malabsorption, not elsewhere classified; R09.02 Hypoxemia; N18.3 Chronic kidney disease, stage 3 (moderate); E03.9 Hypothyroidism, unspecified; E11.22 Type 2 diabetes mellitus with diabetic chronic kidney disease; Z79.84 Long term (current) use of oral hypoglycemic drugs; Z87.891 Personal history of nicotine dependence; R53.1 Weakness; R06.02 Shortness of breath; D50.9 Iron deficiency anemia, unspecified; Z99.81 Dependence on supplemental oxygen; E53.8 Deficiency of other specified B group vitamins; E55.9 Vitamin D deficiency, unspecified; M54.9 Dorsalgia, unspecified; G89.29 Other chronic pain; Z98.84 Bariatric surgery status; Z98.0 Intestinal bypass and anastomosis status; M19.90 Unspecified osteoarthritis, unspecified site; H54.7 Unspecified visual loss; Z96.659 Presence of unspecified artificial knee joint; Z88.5 Allergy status to narcotic agent; Z79.82 Long term (current) use of aspirin
CPT/HCPCS: 36415; 71020 ×2; 71250; 80053; 81001; 82550; 82962; 83550; 83880; 85025; 86140; 86850; 86900; 86901; 86920; 86922; 93005; 96374; 96376; 99285; J1940; J7040; 36430; 80048; 82272; 82607; 82652; 82728; 83735; 84100; 84425; 84443; 87081; 93010; 93306; 93306-26; 96375; A9270-GY; C9113; J1650; J2250; J2405; J2704; J2765; J2916; J3010; J3480; J7030; P9016